=== PATIENT | male | born 1935 | race Caucasian/White ===

== ENCOUNTER → 2017-11-01 | Outpatient (CLI) | payer OTHER, MEDICARE | END | disposition home or self-care (01) | LOC: C.LAB 12:13 | PROVIDERS: ATTEND Urology | DX: N40.1 Benign prostatic hyperplasia with lower urinary tract symptoms (principal); R97.20 Elevated prostate specific antigen [PSA] ==

== ENCOUNTER 2022-01-30 11:45 | Inpatient (IN) ==
[2022-01-30] MEDS ORDERED: MoRPHine SULFATE 2 MG/ML CARP IV STA (11:57)
--- NOTE | 2022-01-30 12:12 | Emergency Department Note ---
History of Present Illness General Chief complaint: Shortness of Breath/Dyspnea Stated complaint: FALL, SOB, LT SHOULDER PAIN Time Seen by Provider: 01/30/22 11:52 History of Present Illness Maximum Pain Intensity: 8 86-year-old male presents to the ED with a chief complaint of Darier thorax pain after slipping on the driveway and landing on that area just prior to arrival. His pain is worse with movement and breathing. The patient has no additional complaints at this time. Denies striking his head. Denies any extremity pain, abdominal pains, neck pains or midline back pains. Home Medications Medication Instructions Recorded Confirmed Type calcium carbonate 600 mg calcium 600 mg PO DAILY 11/10/19 07/12/21 History (1,500 mg) tablet (Calcium) cyanocobalamin (vitamin B-12) 1,000 mcg PO DAILY 11/10/19 07/12/21 History 1,000 mcg capsule omeprazole 20 mg capsule,delayed 20 mg PO DAILY 11/10/19 07/12/21 History release acetaminophen 325 mg tablet 325 mg PO QID PRN 06/09/21 07/12/21 History (Tylenol) finasteride 5 mg tablet 5 mg PO DAILY #90 tab 09/18/21 Rx Allergies Allergy/AdvReac Type Severity Reaction Status Date / Time No Known Allergies Allergy Unknown Verified 07/12/21 09:55 Past Med/Surg History Medical History Benign polyp of large intestine BPH (benign prostatic hyperplasia) Esophageal reflux External hemorrhoid Surgical History H/O transurethral resection of prostate History of appendectomy History of cholecystectomy History of herniorrhaphy Family History Father Myocardial infarction Brother Allergic rhinitis Mother Allergic rhinitis Congestive heart disease Social History Smoking Status: Never smoker Tobacco Type: Cigarettes Hx Alcohol Use: No marital status: current occupational status: retired Feels Safe at Home: Yes Review of Systems A total of 10 systems reviewed and were otherwise negative Physical Exam Vital Signs Vital Signs - 24 hr 01/30/22 11:47 01/30/22 12:43 01/30/22 13:41 Temperature 37 C Temperature Source Temporal Artery Scan Pulse Rate 72 Respiratory Rate 20 Blood Pressure 163/133 H Blood Pressure Mean 143 Blood Pressure Position Sitting Pulse Oximetry 98 97 99 Oxygen Delivery Method Room Air Room Air Room Air Nasal Cannula Oxygen Flow Rate 0 Sepsis Recent Fever Within 48 Hours No Sepsis New/Unexplained Change in Mental Status No Sepsis Action Taken by Nursing No Action Required Oxygen Flow Rate - Titration 6 Pulse Oximetry Post Tiitration 100 CONSTITUTIONAL/VITAL SIGNS: Reviewed / noted above. GENERAL: Non-toxic in appearance. INTEGUMENTARY: Warm, dry, and [place]. HEAD: Normocephalic. EYES: without scleral icterus or trauma. ENT/OROPHARYNX: clear and moist. LYMPHADENOPATHY/NECK: Is supple without lymphadenopathy or meningismus. RESPIRATORY: Clear to auscultation bilaterally. No increased work of breathing. CARDIOVASCULAR: Regular rate and rhythm. GI/ABDOMEN: Soft and nontender. No organomegaly or pulsatile mass. EXTREMITIES: Warm and well perfused. BACK: No CVA tenderness. There is tenderness to palpation of the left posterior ribs that are just medial to the scapula. Small amount of crepitus felt there as well. NEUROLOGICAL: Intact without focal deficits. PSYCHIATRIC: normal affect. MUSCULOSKELETAL: Normally developed with good muscle tone. TRIAGE NURSING DOCUMENTATION REVIEWED. Course Administered Medications Discontinued Medications Morphine Sulfate (Morphine Sulfate 2 Mg/Ml Carp) 2 mg IV NOW STA Stop: 01/30/22 11:58 Last Admin: 01/30/22 12:08 Dose: 2 mg Documented by: [id number] Medical Decision Making Differential Diagnosis Differential includes close head injury, intracranial bleed, facial trauma, cervical spine trauma, chest and thoracic trauma, abdominal and intra-abdominal trauma, spine neurologic trauma, extremity trauma. Medical Records Attestation: I reviewed the patient's medical records. Home Medications Current Medication List: was personally reviewed by me Laboratory Data Result diagrams: 01/30/22 13:00 01/30/22 13:00 Lab Results 01/30/22 01/30/22 01/30/22 Range/Units 13:00 13:00 13:00 WBC 10.19 (4.8-10.8) K/uL RBC 4.12 L (4.7-6.1) M/uL Hgb 12.6 L (14.0-18.0) g/dL Hct 37.7 L (42-52) % MCV 91.5 (80-100) fL MCH 30.6 (25-34) pg MCHC 33.4 (32-36) g/dL RDW Std Deviation 44.5 (36.4-46.3) fL RDW Coeff of Aysha 13.4 (11.5-14.5) % Plt Count 172 (130-400) K/uL MPV 9.7 (7.4-10.4) fL Immature Gran % (Auto) 0.4 % Neut % (Auto) 83.5 % Lymph % (Auto) 8.5 % [place] % (Auto) 6.5 % Eos % (Auto) 0.8 % Baso % (Auto) 0.3 % Neut # (Auto) 8.51 H (1.4-6.5) K/uL Lymph # (Auto) 0.87 L (1.2-3.4) K/uL [place] # (Auto) 0.66 H (0.11-0.59) K/uL Eos # (Auto) 0.08 (0-0.5) K/uL Baso # (Auto) 0.03 (0-0.2) K/uL Immature Gran # (Auto) 0.04 H (0.00-0.02) K/uL PT 10.9 (9.0-12.0) Seconds INR 1.0 (0.9-1.1) Sodium 140 (136-145) mmol/L Potassium 3.6 (3.5-5.1) mmol/L Chloride 113 H (98-107) mmol/L Carbon Dioxide 24 (21-32) mmol/L Anion Gap 3 (3-11) BUN 13 (6-23) mg/dl Creatinine 0.80 (0.6-1.4) mg/dl Est Cr Clr Drug Dosing Not Reportable Est GFR ( Amer) 93.8 ml/min Est GFR (Non-Af Amer) 80.9 ml/min BUN/Creatinine Ratio 16.3 (10-20) Glucose 90 (70-99(Fasting)) mg/dl Calcium 7.6 L (8.5-10.1) mg/dl Imaging Data Radiologist's Impression: Ribs w/Chest X-Ray 01/30/22 11:57 XR ribs LT min 2V w CXR1V HISTORY: 86 years-old Male left rib pain, fall . Left-sided rib pain status post fall COMPARISON: Chest CT of same day, chest radiographs 10/08/2011 TECHNIQUE: AP view of the chest with 7 views of the left ribs FINDINGS: Cardiac silhouette is enlarged. Left apical pneumothorax demonstrates 2.4 cm of pleural separation. Mild subcutaneous emphysema of the left chest wall. Acute fractures of the posterior left fourth through 10th ribs with mild displacement of the fourth through sixth rib fractures. Trace left pleural effusion with mild bibasilar opacities. IMPRESSION: 1. Small left hemopneumothorax with several acute left-sided rib fractures, better visualized on the comparison chest CT of same day. 2. Mild bibasilar opacities suggest atelectasis. ACT 112: Negative or not required by law. The above report was generated using voice recognition software. It may contain grammatical, syntax or spelling errors. Electronically signed by: Luciano Mar M.D. 01/30/2022 1:[address] 01/30/22 12:58 CT chest diagnostic wo con CLINICAL HISTORY: rib fx, left pneumothorax TECHNIQUE: Multidetector row helical CT of the chest was performed. Coronal and sagittal reformations were obtained. Automated dose lowering techniques and/or adjustment according to patient size were utilized for this exam. Comparison: None available at the time of this dictation. FINDINGS: Lungs and pleura: There is a small right effusion and right pneumothorax. Associated atelectasis is seen. Heart and pericardium: Cardiomegaly is seen with biatrial enlargement. Vessels: Moderate atherosclerotic changes in the aorta and coronary arteries. Mediastinum and christina: Unremarkable. Chest wall and lower neck: Subcutaneous emphysema is seen. Abdomen: Splenic calcifications are seen which may represent prior granulomatous disease. A hepatic cyst is partially visualized. Bones: Degenerative changes in the thoracic spine. Multiple fractured ribs are seen on the right including the posterior fourth, fifth, sixth, seventh, eighth, ninth, and 10th ribs. IMPRESSION: Multiple left rib fractures with underlying hydropneumothorax. ACT 112: Negative or not required by law. Electronically signed by: Jorge Luis Isidro M.D. 01/30/2022 1:30 PM MDM Narrative 86-year-old male presents with left posterior thorax pain after a slip and fall in the snow in the driveway just prior to arrival. Vital signs reveal hypertension. He does have tenderness on exam in that area. Chest x-ray and CT scan showed multiple rib fractures and a small pneumothorax. The patient was given IV morphine for discomfort. This seemed to improve symptoms. The patient had good oxygen saturations on room air. He was started on 6 L nasal cannula oxygen. I do believe the patient may improve with conservative management including oxygen and pain medication. At this time I do not feel the patient requires a chest tube. I did speak with Dr. Gonzalez from pulmonology. The patient be admitted to medicine with serial x-rays. Patient is in agreement with the plan. Impression & Plan Fall, Fracture of multiple ribs of left side, Traumatic fracture of ribs of left side with pneumothorax Discharge Plan Visit Data Chief Complaint: Shortness of Breath/Dyspnea Stated Complaint: FALL, SOB, LT SHOULDER PAIN ED Provider: Stiven Walters Discharge Problem: Fall, Fracture of multiple ribs of left side, Traumatic fracture of ribs of left side with pneumothorax Patient Disposition: Being Evaluated by Hospitalist Forms Stand Alone Forms: My [facility] Prescriptions Prescriptions: No Action finasteride 5 mg tablet 5 mg PO DAILY Qty: 90 RF: 3 cyanocobalamin (vitamin B-12) 1,000 mcg capsule 1,000 mcg PO DAILY RF: 0 omeprazole 20 mg capsule,delayed release(DR/EC) 20 mg PO DAILY RF: 0 calcium carbonate [Calcium 600] 600 mg calcium (1,500 mg) tablet 600 mg PO DAILY RF: 0 acetaminophen [Tylenol] 325 mg Tablet 325 mg PO QID PRN (Reason: Pain) RF: 0 Referrals Referrals: Cash Mejia [Primary Care Provider] -
[2022-01-30 13:16] LABS: Basophils # (auto) 0.03 K/uL (0-0.2); Basophils % (auto) 0.3 %; Eosinophils # (auto) 0.08 K/uL (0-0.5); Eosinophils % (auto) 0.8 %; Hematocrit (blood only) 37.7 % (42-52); Hemoglobin 12.6 g/dL (14.0-18.0); Immature Granulocytes # (auto) 0.04 K/uL (0.00-0.02); Immature Granulocytes % (auto) 0.4 %; Lymphocytes # (auto) 0.87 K/uL (1.2-3.4); Lymphocytes % (auto) 8.5 %; Mean Corpuscular Hemoglobin 30.6 pg (25-34); Mean Corpuscular Hgb Conc 33.4 g/dL (32-36); Mean Corpuscular Volume 91.5 fL (80-100); Mean Platelet Volume 9.7 fL (7.4-10.4); Monocytes # (auto) 0.66 K/uL (0.11-0.59); Monocytes % (auto) 6.5 %; Neutrophils # (auto) 8.51 K/uL (1.4-6.5); Neutrophils % (auto) 83.5 %; Platelet Count 172 K/uL (130-400); RDW Coefficient of Variation 13.4 % (11.5-14.5); RDW Standard Deviation 44.5 fL (36.4-46.3); Red Blood Count 4.12 M/uL (4.7-6.1); White Blood Count 10.19 K/uL (4.8-10.8)
--- NOTE | 2022-01-30 13:22 | XRay Report ---
XR ribs LT min 2V w CXR1V HISTORY: 86 years-old Male left rib pain, fall . Left-sided rib pain status post fall COMPARISON: Chest CT of same day, chest radiographs 10/08/2011 TECHNIQUE: AP view of the chest with 7 views of the left ribs FINDINGS: Cardiac silhouette is enlarged. Left apical pneumothorax demonstrates 2.4 cm of pleural separation. M ild subcutaneous emphysema of the left chest wall. Acute fractures of the posterior left fourth throu gh 10th ribs with mild displacement of the fourth through sixth rib fractures. Trace left pleural eff usion with mild bibasilar opacities. IMPRESSION: 1. Small left hemopneumothorax with several acute left-sided rib fractures, better visualized on the comparison chest CT of same day. 2. Mild bibasilar opacities suggest atelectasis. ACT 112: Negative or not required by law. The above report was generated using voice recognition software. It may contain grammatical, syntax o r spelling errors. Electronically signed by: Luciano Mar M.D. 01/30/2022 1:20 PM
--- NOTE | 2022-01-30 13:31 | CT Scan Report ---
CT chest diagnostic wo con CLINICAL HISTORY: rib fx, left pneumothorax TECHNIQUE: Multidetector row helical CT of the chest was performed. Coronal and sagittal reformations were obtained. Automated dose lowering techniques and/or adjustment according to patient size were u tilized for this exam. Comparison: None available at the time of this dictation. FINDINGS: Lungs and pleura: There is a small right effusion and right pneumothorax. Associated atelectasis is s een. Heart and pericardium: Cardiomegaly is seen with biatrial enlargement. Vessels: Moderate atherosclerotic changes in the aorta and coronary arteries. Mediastinum and christina: Unremarkable. Chest wall and lower neck: Subcutaneous emphysema is seen. Abdomen: Splenic calcifications are seen which may represent prior granulomatous disease. A hepatic c yst is partially visualized. Bones: Degenerative changes in the thoracic spine. Multiple fractured ribs are seen on the right incl uding the posterior fourth, fifth, sixth, seventh, eighth, ninth, and 10th ribs. IMPRESSION: Multiple left rib fractures with underlying hydropneumothorax. ACT 112: Negative or not required by law. Electronically signed by: Jorge Luis Isidro M.D. 01/30/2022 1:30 PM
[2022-01-30 13:32] LABS: Prothrombin Time 10.9 Seconds (9.0-12.0)
[2022-01-30 13:38] LABS: Anion Gap 3 (3-11); BUN Creatinine Ratio 16.3 (10-20); Blood Urea Nitrogen 13 mg/dl (6-23); Calcium 7.6 mg/dl (8.5-10.1); Carbon Dioxide 24 mmol/L (21-32); Chloride 113 mmol/L (98-107); Est GFR (African American) 93.8 ml/min; Est GFR (Non-African American) 80.9 ml/min; Glucose 90 mg/dl (70-99(Fasting)); Potassium 3.6 mmol/L (3.5-5.1); Sodium 140 mmol/L (136-145)
[2022-01-30] MEDS ORDERED: KETOROLAC TROMETHAMINE 15 MG/ML VIAL IV ONE (14:22)
--- NOTE | 2022-01-30 14:28 | Pulmonary Consultation ---
Date of Consultation January 30, 2022 Assessment & Plan (1) Traumatic fracture of ribs of left side with pneumothorax: (2) Fall: Impression: 86-year-old male with a traumatic pneumothorax with 7 posterior right-sided rib fractures. Recommendation: 1. Traumatic pneumothorax: Pneumothorax is taken off to justify tube thoracostomy currently but the patient is doing well clinically and has been monitored in the ER for almost 3-1/2 hours without any clinical deterioration. Discussed with the admitting hospitalist service. We will plan on short interval follow-up scanning and if the pneumothorax demonstrates any progression, proceed with tube thoracostomy. 2. Additional trauma work-up per the admitting service. 3. Pain control will be required for prevention of secondary complications such as respiratory insufficiency and pneumonia. Would have a low threshold for anesthesia consultation and consideration for intercostal nerve blocks or other local regional pain management techniques. We will try to avoid over sedating the patient with systemic medications if at all possible. 4. Continue oxygen currently. 5. The patient will require serial imaging. He is at risk for secondary complications associated with a fall and trauma. Management of his other medical issues is deferred to the primary admitting service. Discussed at bedside with the admitting nurse practitioner from the hospitalist service as well as with the patient and family at bedside. Questions were a nswered to the best my ability. We will continue to follow with you History of Present Illness History of Present Illness Asked by hospitalist to assist in evaluation management patient with multiple rib fractures and traumatic pneumothorax. History is obtained from discussion with the ER staff, discussion with the admitting hospitalist service, and interview the patient at bedside as well as review the electronic medical record. The patient is an 86-year-old male without significant prior pulmonary history who was outside shoveling snow today. He suffered a fall onto his back after slipping on the snow and ice. He had chest pain. He presented to the emergency room and was studied with a chest x-ray which revealed multiple rib fractures. A CT scan was also performed showing a traumatic pneumothorax and acute right- sided rib fractures posteriorly 4, 5, 6, 7, 8, 9, and 10th ribs. He is not had primary secondary trauma survey conducted. The patient complains of pain. He received morphine which did take the edge off but he still unable to take a deep breath and unable to cough due to pain issues. Allergies Allergy/AdvReac Type Severity Reaction Status Date / Time No Known Allergies Allergy Unknown Verified 07/12/21 09:55 Home Medications Medication Instructions Recorded Confirmed Type calcium carbonate 600 mg calcium 600 mg PO DAILY 11/10/19 07/12/21 History (1,500 mg) tablet (Calcium) cyanocobalamin (vitamin B-12) 1,000 mcg PO DAILY 11/10/19 07/12/21 History 1,000 mcg capsule omeprazole 20 mg capsule,delayed 20 mg PO DAILY 11/10/19 07/12/21 History release acetaminophen 325 mg tablet 325 mg PO QID PRN 06/09/21 07/12/21 History (Tylenol) finasteride 5 mg tablet 5 mg PO DAILY #90 tab 09/18/21 Rx Patient History Medical History Benign polyp of large intestine BPH (benign prostatic hyperplasia) Esophageal reflux External hemorrhoid Surgical History H/O transurethral resection of prostate History of appendectomy History of cholecystectomy History of herniorrhaphy Family History Father Myocardial infarction Brother Allergic rhinitis Mother Allergic rhinitis Congestive heart disease Social History Smoking Status: Never smoker Tobacco Type: Cigarettes Hx Alcohol Use: No marital status: current occupational status: retired Feels Safe at Home: Yes Review of Systems Review of Systems: Please refer to admission H&P. No additions or deletions Physical Exam Constitutional: WD/WN, vitals as above Neck: trachea midline, no thyromegaly Respiratory: normal respiratory effort, lungs clear to auscultation Cardiovascular: RRR, no murmur, no edema Chest (Breasts): Additional Comments: Tender to palpation on the right posterior thorax. Inability to take a deep breath. Gastrointestinal (Abdomen): normal bowel sounds, soft, nontender, no hepatosplenomegaly Musculoskeletal: Extremities: extremities normal to inspection Skin: no rashes, warm and dry Neurologic: Nonfocal exam Lymphatic: no cervical lymphadenopathy Results & Data Results & Data ([facility]) Vital Signs (Past 12 Hours) Vital Signs Temp Pulse Pulse Resp BP BP Pulse Ox 01/30/22 13:45 71 18 177/80 H 100 01/30/22 13:41 99 01/30/22 12:43 97 01/30/22 11:47 37 C 72 20 163/133 H 98 Critical Care Results & Data Vital Signs (Past 12 Hours) Vital Signs Temp Pulse Pulse Resp BP BP Pulse Ox 01/30/22 13:45 71 18 177/80 H 100 01/30/22 13:41 99 01/30/22 12:43 97 01/30/22 11:47 37 C 72 20 163/133 H 98 Lab & Micro Results (Past 24 Hours) RBC 4.12 M/uL (4.7-6.1) L 01/30/22 WBC 10.19 K/uL (4.8-10.8) 01/30/22 Hgb 12.6 g/dL (14.0-18.0) L 01/30/22 Hct 37.7 % (42-52) L 01/30/22 MCV 91.5 fL (80-100) 01/30/22 MCH 30.6 pg (25-34) 01/30/22 MCHC 33.4 g/dL (32-36) 01/30/22 RDW Standard Deviation 44.5 fL (36.4-46.3) 01/30/22 RDW Coefficient of Variation 13.4 % (11.5-14.5) 01/30/22 Plt Count 172 K/uL (130-400) 01/30/22 MPV 9.7 fL (7.4-10.4) 01/30/22 Neutrophils (%) (Auto) 83.5 % 01/30/22 Lymphocytes (%) (Auto) 8.5 % 01/30/22 Monocytes # (Auto) 0.66 K/uL (0.11-0.59) H 01/30/22 Eosinophils # (Auto) 0.08 K/uL (0-0.5) 01/30/22 Immature Granulocyte % (Auto) 0.4 % 01/30/22 Neutrophils # (Auto) 8.51 K/uL (1.4-6.5) H 01/30/22 Lymphocytes # (Auto) 0.87 K/uL (1.2-3.4) L 01/30/22 Monocytes # (Auto) 0.66 K/uL (0.11-0.59) H 01/30/22 Eosinophils # (Auto) 0.08 K/uL (0-0.5) 01/30/22 Basophils # (Auto) 0.03 K/uL (0-0.2) 01/30/22 Immature Granulocyte # (Auto) 0.04 K/uL (0.00-0.02) H 01/30/22 Na 140 mmol/L (136-145) 01/30/22 K 3.6 mmol/L (3.5-5.1) 01/30/22 Cl 113 mmol/L (98-107) H 01/30/22 CO2 24 mmol/L (21-32) 01/30/22 Anion Gap 3 (3-11) 01/30/22 BUN 13 mg/dl (6-23) 01/30/22 Creatinine 0.80 mg/dl (0.6-1.4) 01/30/22 Estimated GFR ( Amer) 93.8 ml/min 01/30/22 Estimated GFR (Non-Af Amer) 80.9 ml/min 01/30/22 BUN/Creatinine Ratio 16.3 (10-20) 01/30/22 Glu 90 mg/dl (70-99(Fasting)) 01/30/22 Ca 7.6 mg/dl (8.5-10.1) L 01/30/22 Calcium Level 7.6 mg/dl (8.5-10.1) L 01/30/22 13:00 01/30/22 Prothromb Time International Ratio 1.0 (0.9-1.1) 01/30/22 13:00 01/30/22 Diagnostic Findings (Past 24 Hours) Ribs w/Chest X-Ray 01/30/22 11:57 XR ribs LT min 2V w CXR1V HISTORY: 86 years-old Male left rib pain, fall . Left-sided rib pain status post fall COMPARISON: Chest CT of same day, chest radiographs 10/08/2011 TECHNIQUE: AP view of the chest with 7 views of the left ribs FINDINGS: Cardiac silhouette is enlarged. Left apical pneumothorax demonstrates 2.4 cm of pleural separation. Mild subcutaneous emphysema of the left chest wall. Acute fractures of the posterior left fourth through 10th ribs with mild displacement of the fourth through sixth rib fractures. Trace left pleural effusion with mild bibasilar opacities. IMPRESSION: 1. Small left hemopneumothorax with several acute left-sided rib fractures, better visualized on the comparison chest CT of same day. 2. Mild bibasilar opacities suggest atelectasis. ACT 112: Negative or not required by law. The above report was generated using voice recognition software. It may contain grammatical, syntax or spelling errors. Electronically signed by: Luciano Mar M.D. 01/30/2022 1:[address] 01/30/22 12:58 CT chest diagnostic wo con CLINICAL HISTORY: rib fx, left pneumothorax TECHNIQUE: Multidetector row helical CT of the chest was performed. Coronal and sagittal reformations were obtained. Automated dose lowering techniques and/or adjustment according to patient size were utilized for this exam. Comparison: None available at the time of this dictation. FINDINGS: Lungs and pleura: There is a small right effusion and right pneumothorax. Associated atelectasis is seen. Heart and pericardium: Cardiomegaly is seen with biatrial enlargement. Vessels: Moderate atherosclerotic changes in the aorta and coronary arteries. Mediastinum and christina: Unremarkable. Chest wall and lower neck: Subcutaneous emphysema is seen. Abdomen: Splenic calcifications are seen which may represent prior granulomatous disease. A hepatic cyst is partially visualized. Bones: Degenerative changes in the thoracic spine. Multiple fractured ribs are seen on the right including the posterior fourth, fifth, sixth, seventh, eighth, ninth, and 10th ribs. IMPRESSION: Multiple left rib fractures with underlying hydropneumothorax. ACT 112: Negative or not required by law. Electronically signed by: Jorge Luis Isidro M.D. 01/30/2022 1:30 PM RT Ventilator Mngmt (Last Documented) Ventilator Ordered Settings Respiratory Rate 18 01/30/22 13:45 Ventilator - PT Measurements Respiratory Rate 18 PG Care Time/CCT Total # of Minutes Spent Total Time Spent with Patient: Total time spent is greater than 50% in coordination of care (as documented) at patient's floor/unit and/or counseling patient: Coding Level of Care Code 20203 Initial Inpt Care Lvl 3 Diagnoses Traumatic fracture of ribs of left side with pneumothorax S22.42XA; S27.0XXA Fall W19.XXXA
[2022-01-30] MEDS: LIDOCAINE 5% 1 PATCH TD SCH (14:32)
--- NOTE | 2022-01-30 14:59 | History & Physical Report ---
Date of Service January 30, 2022 Assessment & Plan (1) Fall: Plan: Fall from standing directly on left back- resulting in rib fracture and pneumothorax - Awake alert, briskly responsive, breathing with adequate ventilation and oxygenation - CT scan of thoracic and lumbar spine- point tenderness midline with palpation - no actue subluxation, fracture, compression noted - No further evidence of other MSK injuries with palpation and ROM (2) Traumatic fracture of ribs of left side with pneumothorax: Plan: At least 6 rib fractures on left side with pain at false ribs as well - associated with pneumothorax- on left side ~2.4mm with atelectasis vs. evolving contusion - Pain control to prevent sequelae of pneumonia or further atelectasis - Tylenol scheduled 650 mg - Toradol 15mg IV q6 prn mild to moderate - Oxy IR 5mg PO moderate to severe pain - Morphine 2 mg IV q6 prn severe pain - Lidoderm patch left back/flank - APS consult- appreciate evaluation for possible intervention - Follow pneumothorax with assessment and serial imaging - repeat CXR tonight at 2100 - if increases or symptoms change would place pigtail catheter vs. small bore thoracostomy- appreciate pulmonary assistance - +/- on oxygen supplementation to assist with re-absorption - he does not have COPD so continue - No hemothorax appreciated - Trachea midline (3) Prostate nodule with urinary obstruction: Plan: Follows with urology Continue with Finasteride (4) Esophageal reflux: Plan: Continue omeprazole 20mg daily (5) Winged scapula of left side: Plan: Follows with Dr. Edwards noting some thoracic nerve pain with this as well as muscle tightening - Pain control with rib fractures and may benefit from PT/OT as this muscle group likely to tighten up from above (6) BPH with obstruction/lower urinary tract symptoms: Plan: As above History of Present Illness Primary Care Provider: Cash Mejia 86 YOM with past medical history of: BPH with prostate nodule, Zenker, diverticulum, osteopenia, GERD. Patient comes to the EMD today following falling on [place] top driveway. Patient states he went out to shovel snow and slipped in his driveway landing directly on his upper thoracic back and more on left side. The patient immediately had the wind knocked out of him and was unable to take deep breath- he got up into the garage and continued to not be able to catch his breath. He was brought by his daughter to the [facility]. In the [facility] he had routine labs drawn, CXR, and CT scan of his chest performed. This was notable for left sided pneumothorax with effusion and reported 6 rib fractures to the left side. Hospitalist and County Treasurer were notified of admission. Patient evaluated. Patient denies hitting head or having any neck pain with palpation, he is noted to have point tenderness on his thoracic spine and upper lumbar, will obtain CT cans. He has SubQ air on the left side as well. Has good air entry on right throughout and into the left side except at the top of his lung as this is decreased. No further pain noted in his pelvis, knees, or shoulders/arms. He is awake and no bruising noted. Patient will be admitted to PCU to closely follow his pain control as well as imaging. We dis cussed importance of pain control in regards to deep breathing and preventing sequela of pneumonia/atelectasis. Will provide multiple tiered pain control, splinting with blanket, and APS consult for possible assistance with pain control. Allergies Allergy/AdvReac Type Severity Reaction Status Date / Time No Known Allergies Allergy Unknown Verified 07/12/21 09:55 Home Medications Medication Instructions Recorded Confirmed Type calcium carbonate 600 mg calcium 600 mg PO DAILY 11/10/19 01/30/22 History (1,500 mg) tablet (Calcium) cyanocobalamin (vitamin B-12) 1,000 mcg PO DAILY 11/10/19 01/30/22 History 1,000 mcg capsule omeprazole 20 mg capsule,delayed 20 mg PO DAILY 11/10/19 01/30/22 History release acetaminophen 325 mg tablet 325 mg PO QID PRN 06/09/21 01/30/22 History (Tylenol) finasteride 5 mg tablet 5 mg PO DAILY #90 tab 09/18/21 01/30/22 Rx Past Med/Surg History Medical History (Updated 01/30/22 @ 14:55 by JAM Smith) Benign polyp of large intestine BPH (benign prostatic hyperplasia) Esophageal reflux External hemorrhoid Surgical History H/O transurethral resection of prostate History of appendectomy History of cholecystectomy History of herniorrhaphy Family History Father Myocardial infarction Brother Allergic rhinitis Mother Allergic rhinitis Congestive heart disease Social History Smoking Status: Never smoker Tobacco Type: Cigarettes Hx Alcohol Use: No Hx Substance Use: No Preferred Language: Bengali Communication Ability: Effective 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 Required: No Beliefs That Will Affect Care: None marital status: Current Living Situation: Alone and Family current occupational status: retired Feels Safe at Home: Yes Assistive Devices: Denture - Upper and Denture - Lower Review of Systems Review of Systems: REVIEW OF SYSTEMS: Constitutional: No fever, sweats or chills Eyes: No diplopia, no worsening or blurred vision ENT: normal hearing, no trouble swallowing Respiratory: No cough, sputum, dyspnea at rest or on exertion Cardiovascular: No chest pain, tightness or palpitations Abdomen: (+) night time frequency, No pain, nausea, vomiting, diarrhea or constipation Musculoskeletal: (+) back and left sided flank pain Neurologic: No weakness, numbness/tingling, or balance problems Psychiatric: No anxiety or depression Skin: No rash or itch Physical Exam Physical Exam: PHYSICAL EXAM: General: awake, alert, no apparent distress Head: Normocephalic, atraumatic, no tender areas with palpation and no crepitus ENT: PERRL, EOMI, no pharyngeal exudate, mucous membranes moist Neuro: AAO x 3, speech clear and appropriate, strength intact bilaterally 5/5, sensation intact and equal all extremities and dermatones, no pronator drift Chest: equal rise and fall of the chest, no accessory muscle use, no heaves or thrills, decreased left upper <1/3 and clear throughout remaining, no assymetry or flail chest Cardiac: Regular rate and rhythm, telemetry reviewed, skin warm dry, cap refill <3 seconds, peripheral pulses +2 no JVD, no murmur,no edema GI: NABS x 4 quadrants, soft, nontender to palpation, no rebound, guarding or tenderness : Spontaneously voiding, no pain, no CVA tenderness, MSK: No cervical spine tenderness and no pain with flexion/extension, Midline point tenderness around T6-T7 and L1, left posterior and left flank pain with subcutaneous emphysema, shoulders with full ROM bilaterally without crepitus, pelvis stable without pain, no pain to legs or knees or hips and full ROM with intact strength and sensation throughout. Psych: Normal mood and affect Skin: no rash or erythema Results & Data Results & Data ([facility]) Vital Signs (Past 12 Hours) Vital Signs Temp Pulse Pulse Resp BP BP Pulse Ox 01/30/22 13:45 71 18 177/80 H 100 01/30/22 13:41 99 01/30/22 12:43 97 01/30/22 11:47 37 C 72 20 163/133 H 98 Laboratory Results Abnormal lab results 01/30/22 01/30/22 Range/Units 13:00 13:00 RBC 4.12 L (4.7-6.1) M/uL Hgb 12.6 L (14.0-18.0) g/dL Hct 37.7 L (42-52) % Neut # (Auto) 8.51 H (1.4-6.5) K/uL Lymph # (Auto) 0.87 L (1.2-3.4) K/uL Johnston # (Auto) 0.66 H (0.11-0.59) K/uL Immature Gran # (Auto) 0.04 H (0.00-0.02) K/uL Chloride 113 H (98-107) mmol/L Calcium 7.6 L (8.5-10.1) mg/dl Diagnostic Findings Ribs w/Chest X-Ray 01/30/22 11:57 XR ribs LT min 2V w CXR1V HISTORY: 86 years-old Male left rib pain, fall . Left-sided rib pain status post fall COMPARISON: Chest CT of same day, chest radiographs 10/08/2011 TECHNIQUE: AP view of the chest with 7 views of the left ribs FINDINGS: Cardiac silhouette is enlarged. Left apical pneumothorax demonstrates 2.4 cm of pleural separation. Mild subcutaneous emphysema of the left chest wall. Acute fractures of the posterior left fourth through 10th ribs with mild displacement of the fourth through sixth rib fractures. Trace left pleural effusion with mild bibasilar opacities. IMPRESSION: 1. Small left hemopneumothorax with several acute left-sided rib fractures, better visualized on the comparison chest CT of same day. 2. Mild bibasilar opacities suggest atelectasis. ACT 112: Negative or not required by law. The above report was generated using voice recognition software. It may contain grammatical, syntax or spelling errors. Electronically signed by: Luciano Mar M.D. 01/30/2022 1:[address] 01/30/22 12:58 CT chest diagnostic wo con CLINICAL HISTORY: rib fx, left pneumothorax TECHNIQUE: Multidetector row helical CT of the chest was performed. Coronal and sagittal reformations were obtained. Automated dose lowering techniques and/or adjustment according to patient size were utilized for this exam. Comparison: None available at the time of this dictation. FINDINGS: Lungs and pleura: There is a small right effusion and right pneumothorax. Associated atelectasis is seen. Heart and pericardium: Cardiomegaly is seen with biatrial enlargement. Vessels: Moderate atherosclerotic changes in the aorta and coronary arteries. Mediastinum and christina: Unremarkable. Chest wall and lower neck: Subcutaneous emphysema is seen. Abdomen: Splenic calcifications are seen which may represent prior granulomatous disease. A hepatic cyst is partially visualized. Bones: Degenerative changes in the thoracic spine. Multiple fractured ribs are seen on the right including the posterior fourth, fifth, sixth, seventh, eighth, ninth, and 10th ribs. IMPRESSION: Multiple left rib fractures with underlying hydropneumothorax. ACT 112: Negative or not required by law. Electronically signed by: Jorge Luis Isidro M.D. 01/30/2022 1:[address] DOSE: HISTORY: Left-sided back pain. point tenderness with fall- eval for fracture TECHNIQUE: Multiaxial CT images of the lumbar spine were performed and reformatted in the sagittal and coronal plane without the use of contrast. A dose lowering technique was utilized adhering to the principles of ALARA. COMPARISON: Chest CT 01/30/2022. FINDINGS: No fracture or subluxation within the lumbar spine. The visualized sacrum is intact. Paravertebral soft tissues are unremarkable. There is severe disc space narrowing at L3-L4 and L4-5 with endplate osteophytes. There is also moderate central canal narrowing at these levels due to the disc bulges and facet hypertrophy. Small amount of subcutaneous gas within the left paraspinal location. This is likely secondary to the left chest wall trauma seen on the prior chest CT. IMPRESSION: No fractures within the lumbar spine. CT thoracic spine wo con CLINICAL HISTORY: evaluate for fracture- point tenderness post fall TECHNIQUE: Multidetector row helical CT of the thoracic spine was performed without administration of intravenous contrast. Coronal and sagittal reformations were obtained. Automated dose lowering techniques and/or adjustment according to patient size were utilized for this exam. Comparison: Comparison is made to CT chest 01/30/2022 FINDINGS: Multiple left rib fractures are seen. No vertebral fracture is seen. Degenerative changes are noted in the visualized spine. Vertebral body alignment is within normal limits. Again noted is a left hydropneumothorax and subcutaneous emphysema. IMPRESSION: Multiple left rib fractures seen without evidence of vertebral fractures. ACT 112: Negative or not required by law. Electronically signed by: Jorge Luis Isidro M.D. 01/30/2022 2:59 PM Medications Administered Lidocaine (Lidocaine 5% 1 Patch) 1 patch TD QAM [facility] Stop: 03/01/22 14:23 Last Admin: 01/30/22 14:32 Dose: 1 patch Documented by: [id number] Discontinued Medications Ketorolac Tromethamine (Ketorolac Tromethamine 15 Mg/Ml Vial) 15 mg IV NOW ONE Stop: 01/30/22 14:23 Last Admin: 01/30/22 14:29 Dose: 15 mg Documented by: [id number] Morphine Sulfate (Morphine Sulfate 2 Mg/Ml Carp) 2 mg IV NOW STA Stop: 01/30/22 11:58 Last Admin: 01/30/22 12:08 Dose: 2 mg Documented by: [id number] Home Medications calcium carbonate 600 mg calcium (1,500 mg) tablet (Calcium) 600 mg PO DAILY 11/10/19 [History Confirmed 07/12/21] cyanocobalamin (vitamin B-12) 1,000 mcg capsule 1,000 mcg PO DAILY 11/10/19 [History Confirmed 07/12/21] omeprazole 20 mg capsule,delayed release 20 mg PO DAILY 11/10/19 [History Confirmed 07/12/21] acetaminophen 325 mg tablet (Tylenol) 325 mg PO QID PRN 06/09/21 [History Confirmed 07/12/21] finasteride 5 mg tablet 5 mg PO DAILY #90 tab 09/18/21 [Rx] Active Medications Lidocaine (Lidocaine 5% 1 Patch) 1 patch TD QAM MICHELINE Stop: 03/01/22 14:23 Last Admin: 01/30/22 14:32 Dose: 1 patch Documented by: ECG Additional Comments: Pending on admission Code Status & VTE Plan Code Status CODE: FULL VTE: SCDS, will hold chemical prophylaxis until scans and repeat imaging completed VTE Prophylaxis Plan VTE Prophylaxis will be ordered: Yes Supervising Physician Co-Signing Physician Notes I supervised JAM Schneider on the care of this patient. I interviewed and examined the patient independently of him. The plan is as written in his note except for any following changes/exceptions: None 86yo M w/ mechanical fall, presenting with 6 rib fractures. Now also with PTX. Will get pulmonary to weigh in, monitor PTX, treat pain control. PG Care Time/CCT Total # of Minutes Spent Total Time Spent with Patient: Total time spent is greater than 50% in coordination of care (as documented) at patient's floor/unit and/or counseling patient: Coding Level of Care Code 39056 Initial Inpt Care Lvl 3 Diagnoses Fall W19.XXXA Traumatic fracture of ribs of left side with pneumothorax S22.42XA; S27.0XXA Prostate nodule with urinary obstruction N40.3; N13.8 Esophageal reflux K21.9 Winged scapula of left side M95.8 BPH with obstruction/lower urinary tract symptoms N40.1; N13.8
--- NOTE | 2022-01-30 15:00 | CT Scan Report ---
CT thoracic spine wo con CLINICAL HISTORY: evaluate for fracture- point tenderness post fall TECHNIQUE: Multidetector row helical CT of the thoracic spine was performed without administration of intravenous contrast. Coronal and sagittal reformations were obtained. Automated dose lowering techn iques and/or adjustment according to patient size were utilized for this exam. Comparison: Comparison is made to CT chest 01/30/2022 FINDINGS: Multiple left rib fractures are seen. No vertebral fracture is seen. Degenerative changes are noted i n the visualized spine. Vertebral body alignment is within normal limits. Again noted is a left hydro pneumothorax and subcutaneous emphysema. IMPRESSION: Multiple left rib fractures seen without evidence of vertebral fractures. ACT 112: Negative or not required by law. Electronically signed by: Jorg eLuis Isidro M.D. 01/30/2022 2:59 PM
--- NOTE | 2022-01-30 15:04 | CT Scan Report ---
LUMBAR SPINE CT CT DOSE: HISTORY: Left-sided back pain. point tenderness with fall- eval for fracture TECHNIQUE: Multiaxial CT images of the lumbar spine were performed and reformatted in the sagittal an d coronal plane without the use of contrast. A dose lowering technique was utilized adhering to the principles of ALARA. COMPARISON: Chest CT 01/30/2022. FINDINGS: No fracture or subluxation within the lumbar spine. The visualized sacrum is intact. Parave rtebral soft tissues are unremarkable. There is severe disc space narrowing at L3-L4 and L4-5 with en dplate osteophytes. There is also moderate central canal narrowing at these levels due to the disc bu lges and facet hypertrophy. Small amount of subcutaneous gas within the left paraspinal location. Thi s is likely secondary to the left chest wall trauma seen on the prior chest CT. IMPRESSION: No fractures within the lumbar spine. ACT 112: Negative or not required by law. Electronically signed by: Eladio Conroy M.D. 01/30/2022 3:02 PM
[2022-01-30] MEDS ORDERED: oxyCODONE HCL IR 5 MG TAB (IMMEDIATE RELEASE) PO PRN (16:29)
[2022-01-30] MEDS ORDERED: KETOROLAC TROMETHAMINE 15 MG/ML VIAL IV PRN (16:29)
[2022-01-30] MEDS ORDERED: ONDANSETRON INJ 2 MG/ML 2 ML VIAL IV PRN (16:29)
[2022-01-30] MEDS ORDERED: ACETAMINOPHEN 325 MG TAB PO PRN (16:29)
[2022-01-30] MEDS ORDERED: MoRPHine SULFATE 2 MG/ML CARP IV PRN (16:29)
[2022-01-30] MEDS: ACETAMINOPHEN 325 MG TAB PO SCH (22:37)
[2022-01-31 05:45] LABS: Basophils # (auto) 0.02 K/uL (0-0.2); Basophils % (auto) 0.2 %; Eosinophils # (auto) 0.09 K/uL (0-0.5); Eosinophils % (auto) 1.1 %; Hematocrit (blood only) 35.8 % (42-52); Hemoglobin 12.2 g/dL (14.0-18.0); Immature Granulocytes # (auto) 0.02 K/uL (0.00-0.02); Immature Granulocytes % (auto) 0.2 %; Lymphocytes # (auto) 0.95 K/uL (1.2-3.4); Lymphocytes % (auto) 11.3 %; Mean Corpuscular Hemoglobin 30.8 pg (25-34); Mean Corpuscular Hgb Conc 34.1 g/dL (32-36); Mean Corpuscular Volume 90.4 fL (80-100); Mean Platelet Volume 9.7 fL (7.4-10.4); Monocytes # (auto) 0.97 K/uL (0.11-0.59); Monocytes % (auto) 11.5 %; Neutrophils # (auto) 6.38 K/uL (1.4-6.5); Neutrophils % (auto) 75.7 %; Platelet Count 174 K/uL (130-400); RDW Coefficient of Variation 13.1 % (11.5-14.5); RDW Standard Deviation 43.4 fL (36.4-46.3); Red Blood Count 3.96 M/uL (4.7-6.1); White Blood Count 8.43 K/uL (4.8-10.8)
[2022-01-31 06:06] LABS: BUN Creatinine Ratio 20.9 (10-20); Calcium 8.8 mg/dl (8.5-10.1); Creatinine Clr Calc Pharmacy 37.2 ml/min; Est GFR (African American) 70.1 ml/min; Est GFR (Non-African American) 60.5 ml/min; Magnesium 1.9 mg/dl (1.7-2.4); Potassium 4.5 mmol/L (3.5-5.1)
[2022-01-31] MEDS: ACETAMINOPHEN 325 MG TAB PO SCH ×3 (06:28→21:31)
--- NOTE | 2022-01-31 07:59 | XRay Report ---
XR chest 1V portable HISTORY: 86 years-old Male evaluation of pneumothorax resolution/worsening follow-up study in a [place] ent with left-sided pneumothorax and left-sided rib fractures COMPARISON: Chest radiograph and chest CT 01/30/2022 TECHNIQUE: Portable AP view of the chest FINDINGS: Cardiac silhouette is enlarged. The patient is mildly rotated. Unchanged left apical pneumothorax wit h pleural separation of 1.9 cm. Small left pleural effusion redemonstrated. Numerous acute left-sided rib fractures are redemonstrated, some of which are slightly displaced. The right lung is clear. Mil d subcutaneous emphysema of the left supraclavicular tissues. Left shoulder rotator cuff calcific ten dinosis. IMPRESSION: 1. Unchanged small left hemopneumothorax with subcutaneous emphysema of the left chest wall and supra clavicular tissues. 2. Numerous acute and displaced left-sided rib fractures redemonstrated. 3. Mild left basilar atelectasis. ACT 112: Negative or not required by law. The above report was generated using voice recognition software. It may contain grammatical, syntax o r spelling errors. Electronically signed by: Luciano Mar M.D. 01/31/2022 7:58 AM
--- NOTE | 2022-01-31 08:13 | XRay Report ---
XR chest 1V portable HISTORY: 86 years-old Male evaluate pneumothroax follow-up study in a patient with left-sided pneumo thorax COMPARISON: Chest CT 01/30/2022, chest radiograph 01/30/2022 TECHNIQUE: Portable AP view of the chest FINDINGS: Cardiac silhouette is enlarged. The patient is mildly rotated. Unchanged left apical pneumothorax wit h pleural separation of 1.9 cm. Small left pleural effusion redemonstrated. Numerous acute left- side d rib fractures are redemonstrated, some of which are slightly displaced. The right lung is clear. Mi ld subcutaneous emphysema of the left chest wall. Left shoulder rotator cuff calcific tendinosis. IMPRESSION: 1. Unchanged small left hemopneumothorax with subcutaneous emphysema of the left chest wall. 2. Numerous acute and displaced left-sided rib fractures redemonstrated. 3. Mild left basilar atelectasis. ACT 112: Negative or not required by law. The above report was generated using voice recognition software. It may contain grammatical, syntax o r spelling errors. Electronically signed by: Luciano Mar M.D. 01/31/2022 8:12 AM
--- NOTE | 2022-01-31 08:23 | Electrocardiogram Report ---
Test Reason : Blood Pressure : / mmHG Vent. Rate : 081 BPM Atrial Rate : 081 BPM P-R Int : 136 ms QRS Dur : 072 ms QT Int : 350 ms P-R-T Axes : 057 021 045 degrees QTc Int : 406 ms Poor data quality, interpretation may be adversely affected Normal sinus rhythm Peaked T waves(consider ischemia,hyperkalemia,etc.) Borderline ECG When compared with ECG of 15-MAR-2004 11:47, Vent. rate has increased BY 32 BPM Otherwise no significant change Confirmed by Rob Gonzalez ([id number]) on 01/31/2022 8:22:59 AM Referred By: REFERRED SELF Confirmed By:Rob Gonzalez
--- NOTE | 2022-01-31 08:32 | Procedure Note ---
Procedure Note Date of Service January 31, 2022 Note Procedure: 8 Kenyan pneumothorax catheter placement on the left Conservation Scientist: Dr. Raj Gonzalez Indication: Traumatic pneumothorax Consent: Signed by patient and verified with timeout prior to procedure Anesthesia: 8 mL's 1% lidocaine without epinephrine local. Procedure: Consent was verified and timeout performed. Appropriate imaging studies were reviewed prior to the procedure. Patient was placed in a seated position in the midclavicular line approximately 2 cm below the clavicle was cleaned and draped using chlorhexidine. A sterile field was established. The skin and subcutaneous tissues were anesthetized with instillation of 1% lidocaine without epinephrine. Using the finder needle I was able to pass over the anterior rib and aspirate air. The parietal pleura was anesthetized with lidocaine as the needle was withdrawn. A small skin donna was made with a scalpel. The 8 Kenyan catheter was then advanced through the skin donna and over the rib into the pleural space. Air was aspirated. The catheter was pushed off the needle into the pleural space and the needle was withdrawn. The catheter was attached to a Pleur-evac suction system with 1+ air leak noted. Catheter was sutured in place and secured using a StatLock skater retaining system. Post procedure chest x- ray is pending. Continue catheter to 20 cm of suction and additional management will depend on imaging and clinical response. The patient tolerated the procedure well without obvious complication Coding CPT Codes Pulmonary/Thoracic - Pulmonary and Thoracic: 57520 Tube thoracostomy ([id number]) [facility] [place] Codes (Charges) Pulmonary/Thoracic Procedure 1: Pulmonary and Thoracic: 93638 Tube thoracostomy
--- NOTE | 2022-01-31 08:34 | Pain Management Consultation ---
Date of Consultation January 31, 2022 Assessment & Plan (1) Traumatic fracture of ribs of left side with pneumothorax: (2) Fracture of multiple ribs of left side: 1. Due to multiple rib fractures the patient is a poor candidate for intercostal nerve block. 2. Will initiate Nucynta 50 mg every 4 hours for as needed breakthrough pain as the patient had sedation with IV morphine at 2 mg dose per nursing staff. [place] IV morphine for pain not well controlled with Nucynta. Consider dose re duction of IV morphine moving forward pending response. 3. Should the patient struggle with pain control, could consider P[employer] WORK[employer] Dilaudid versus placement of epidural catheter by anesthesia for continuous pain control. 4. Will continue to follow History of Present Illness Reason for Consultation: Chest wall pain with history of 7 left-sided rib fractures status post fall Requesting Physician: JAM Schneider Attending Physician: Hamida Palafox MD History of Present Illness Mr. Swann is an 86-year-old white male who was shoveling snow yesterday whenever he fell onto his left side back. He reported immediate difficulties with breathing and was transported emergently by his daughter. The patient was found to have 7 rib fractures including rib 4 through 10. Patient reports that his current pain is a 5-6/10 but his pain was an 8-9/10 earlier whenever he woke up. He was provided 2 mg of IV morphine which provided significant relief of his typical pain per his report. Nursing staff reported that it did cause significant sedation. He reports his discomfort is in the left lateral and anterior chest wall described as aching and episodically sharp with movement or deep breathing. He feels that he is better able to take a deeper breath while sitting up this morning than he was prior to the IV morphine. He denies any thoracic back pain or thoracic radicular component to his pain complaints. The patient was also found to have pneumothorax. Patient denies any other pain complaints at this time. Patient denies axial neck pain or cervical radicular component the pain complaints. Patient has no further constitutional complaints. Plan of care discussed with Dr. Chavez. Pain Assessment Full Body Front + Back: 1. Left lateral/lateral anterior chest wall Pain scale - at its best (0-10): 5 Pain scale - at its worst (0-10): 9 Allergies Allergy/AdvReac Type Severity Reaction Status Date / Time No Known Allergies Allergy Unknown Verified 07/12/21 09:55 Home Medications Medication Instructions Recorded Confirmed Type calcium carbonate 600 mg calcium 600 mg PO DAILY 11/10/19 01/30/22 History (1,500 mg) tablet (Calcium) cyanocobalamin (vitamin B-12) 1,000 mcg PO DAILY 11/10/19 01/30/22 History 1,000 mcg capsule omeprazole 20 mg capsule,delayed 20 mg PO DAILY 11/10/19 01/30/22 History release acetaminophen 325 mg tablet 325 mg PO QID PRN 06/09/21 01/30/22 History (Tylenol) finasteride 5 mg tablet 5 mg PO DAILY #90 tab 09/18/21 01/30/22 Rx Pain History Pain Intensity Pain scale - at its best (0-10): 5 Pain scale - at its worst (0-10): 9 Patient History Medical History (Updated 01/31/22 @ 08:46 by Francisco De La Vega PA-C) Benign polyp of large intestine BPH (benign prostatic hyperplasia) Esophageal reflux External hemorrhoid Surgical History H/O transurethral resection of prostate History of appendectomy History of cholecystectomy History of herniorrhaphy Family History Father Myocardial infarction Brother Allergic rhinitis Mother Allergic rhinitis Congestive heart disease Social History Smoking Status: Never smoker Tobacco Type: Cigarettes Hx Alcohol Use: No Hx Substance Use: No Preferred Language: Welsh Communication Ability: Effective Side Panel Hanger Required: No Beliefs That Will Affect Care: None marital status: Single Current Living Situation: Alone and Family current occupational status: retired How many Children do You have: 1 Feels Safe at Home: Yes Assistive Devices: None Physical Exam Physical Exam: General: Patient sitting up eating breakfast upon entering the room in no acute distress. Speech and thought process appropriate. Mood and affect appropriate. Cognition intact. Head: Normocephalic and atraumatic. ENT: No evidence of nasal or oral mucosal lesions. Mucous membranes are moist. Eyes: Pupils equal round reactive to light. Neck: Supple without adenopathy and full range of motion. Chest: Nontender to palpation of the costosternal junction. Patient is minimally tender to direct palpation over the left lateral and anterior chest wall. Minimally tender with AP and lateral compression of the chest wall. No palpable abnormalities appreciated. Abdomen: Soft and nondistended. No organomegaly. Bowel sounds active. Back/spine: No focal midline tenderness to palpation or percussion. Moderately tender in the left mid-lower thoracic paravertebral musculature extending to the posterior lateral chest wall. Lower extremities: Sensation intact. Strength testing 4+/5 throughout without focal deficit. No appreciable edema. Neurologic: Cranial nerves grossly intact. Ambulatory function not witnessed. Results (Pain [facility]) Diagnostic Review CT Findings: [place], [place] [phone] CT Scan Report Patient:DANILO SWANN Admit Date:01/30/22 MR#:[id number] Address1:[address] [place] [address] Acct ID:[id number] Address2: Date:1935 [facility] Zip:[place] [address] Age:86 Location:ED Sex:M Room/Bed: Att Phy: Diagnosis:FALL, SOB, LT SHOULDER PAIN Valentina Phy:Sheela Mejia M.D. Service Date:01/30/22 [facility] Phy: Interpreting Phy:Jorge Luis Isidro [facility] Phy: Ordering Phy:Bubba Anderson cc: ~ CT thoracic spine wo con CLINICAL HISTORY: evaluate for fracture- point tenderness post fall TECHNIQUE: Multidetector row helical CT of the thoracic spine was performed without administration of intravenous contrast. Coronal and sagittal reformations were obtained. Automated dose lowering techniques and/or adjustment according to patient size were utilized for this exam. Comparison: Comparison is made to CT chest 01/30/2022 FINDINGS: Multiple left rib fractures are seen. No vertebral fracture is seen. Degenerative changes are noted in the visualized spine. Vertebral body alignment is within normal limits. Again noted is a left hydropneumothorax and subcutaneous emphysema. IMPRESSION: Multiple left rib fractures seen without evidence of vertebral fractures. ACT 112: Negative or not required by law. Electronically signed by: Jorge Luis Isidro M.D. 01/30/2022 2:59 PM Dictated:01/30/22 1450 Transcribed: 01/30/22 1450 [facility], [place] [phone] CT Scan Report Patient:DANILO SWANN Admit Date:01/30/22 MR#:[id number] Address1:[address] [place] [address] Acct ID:[id number] Address2: Date:1935 [facility] Zip:[place] [address] Age:86 Location:ED Sex:M Room/Bed: Att Phy: Diagnosis:FALL, SOB, LT SHOULDER PAIN Valentina Phy:Sheela Mejia M.D. Service Date:01/30/22 [facility] Phy: Interpreting Phy:Eladio Conroy MDAdmit Phy: Ordering Phy:Bubba Anderson cc: ~ LUMBAR SPINE CT CT DOSE: HISTORY: Left-sided back pain. point tenderness with fall- eval for fracture TECHNIQUE: Multiaxial CT images of the lumbar spine were performed and reformatted in the sagittal and coronal plane without the use of contrast. A dose lowering technique was utilized adhering to the principles of ALARA. COMPARISON: Chest CT 01/30/2022. FINDINGS: No fracture or subluxation within the lumbar spine. The visualized sacrum is intact. Paravertebral soft tissues are unremarkable. There is severe disc space narrowing at L3-L4 and L4-5 with endplate osteophytes. There is also moderate central canal narrowing at these levels due to the disc bulges and facet hypertrophy. Small amount of subcutaneous gas within the left paraspinal location. This is likely secondary to the left chest wall trauma seen on the prior chest CT. IMPRESSION: No fractures within the lumbar spine. ACT 112: Negative or not required by law. Electronically signed by: Eladio Conroy M.D. 01/30/2022 3:02 PM Dictated:01/30/221451 Transcribed: 01/30/22 145 [facility], [place] [phone] CT Scan Report Patient:DANILO SWANN Admit Date:01/30/22 MR#:[id number] Address1:[address] [place] [address] Acct ID:[id number] Address2: Date:1935 [facility] Zip:[place] [address] Age:86 Location:ED Sex:M Room/Bed: Att Phy: Diagnosis:FALL, SOB, LT SHOULDER PAIN Valentina Phy:Sheela Mejia M.D. Service Date:01/30/22 Andrey Phy: Interpreting Phy:Jorge Luis Isidro MDAdmit Phy: Ordering Phy:Stiven Walters D.O. cc: ~ CT chest diagnostic wo con CLINICAL HISTORY: rib fx, left pneumothorax TECHNIQUE: Multidetector row helical CT of the chest was performed. Coronal and sagittal reformations were obtained. Automated dose lowering techniques and/or adjustment according to patient size were utilized for this exam. Comparison: None available at the time of this dictation. FINDINGS: Lungs and pleura: There is a small right effusion and right pneumothorax. Associated atelectasis is seen. Heart and pericardium: Cardiomegaly is seen with biatrial enlargement. Vessels: Moderate atherosclerotic changes in the aorta and coronary arteries. Mediastinum and christina: Unremarkable. Chest wall and lower neck: Subcutaneous emphysema is seen. Abdomen: Splenic calcifications are seen which may represent prior granulomatous disease. A hepatic cyst is partially visualized. Bones: Degenerative changes in the thoracic spine. Multiple fractured ribs are seen on the right including the posterior fourth, fifth, sixth, seventh, eighth, ninth, and 10th ribs. IMPRESSION: Multiple left rib fractures with underlying hydropneumothorax. ACT 112: Negative or not required by law. Electronically signed by: Jorge Luis Isidro M.D. 01/30/2022 1:30 PM Dictated:01/30/22 1321 Transcribed: 01/30/22 1321 Radiology Findings: [facility], [place] [phone] XRay Report Patient:DANILO SWANN Admit Date:01/30/22 MR#:[id number] Address1:[address] [place] [address] Acct ID:[id number] Address2: Date:1935 [facility] Zip:[place] [address] Age:86 Location: Sex:M Room/Bed:E218-1 Att Phy:Hamida Palafox MD Diagnosis:FALL WITH PNEUMOTHORAX Valentina Phy:Sheela Mejia M.D. Service Date:01/31/22 [facility] Phy: Interpreting Phy:Luciano MarAdmit Phy:Edward Lovell MD Ordering Phy:Bubba Anderson cc: ~ XR chest 1V portable HISTORY: 86 years-old Male evaluation of pneumothorax resolution/worsening follow-up study in a patient with left-sided pneumothorax and left-sided rib fractures COMPARISON: Chest radiograph and chest CT 01/30/2022 TECHNIQUE: Portable AP view of the chest FINDINGS: Cardiac silhouette is enlarged. The patient is mildly rotated. Unchanged left apical pneumothorax with pleural separation of 1.9 cm. Small left pleural effusion redemonstrated. Numerous acute left-sided rib fractures are redemonstrated, some of which are slightly displaced. The right lung is clear. Mild subcutaneous emphysema of the left supraclavicular tissues. Left shoulder rotator cuff calcific tendinosis. IMPRESSION: 1. Unchanged small left hemopneumothorax with subcutaneous emphysema of the left chest wall and supraclavicular tissues. 2. Numerous acute and displaced left-sided rib fractures redemonstrated. 3. Mild left basilar atelectasis. ACT 112: Negative or not required by law. The above report was generated using voice recognition software. It may contain grammatical, syntax or spelling errors. Electronically signed by: Luciano Mar M.D. 01/31/2022 7:58 AM Dictated:01/31/22 0755 Transcribed: 01/31/22 0755
--- NOTE | 2022-01-31 08:36 | Pulmonology Progress Note ---
Date of Service January 31, 2022 Assessment & Plan (1) Traumatic fracture of ribs of left side with pneumothorax: (2) Fall: Plan: Impression: 86-year-old male with a traumatic pneumothorax with 7 posterior right-sided rib fractures. His pneumothorax has not shown any improvement with conservative management over the last 18 hours. Small 8 Swedish chest tube was placed anteriorly this morning for evacuation of pneumothorax with follow-up imaging pending. Recommendation: 1. Traumatic pneumothorax: Status post 8 Swedish pneumothorax catheter placement. Await follow-up imaging. Keep catheter to 20 cm of wall suction until air leak resolves. We will then pursue trials of clamping with follow-up imaging prior to discontinuation of the catheter. 2. Pain control per primary service and acute pain service. 3. Continue oxygen currently. We will continue to follow. Daily chest x-rays ordered. Please call if questions. Admission and Anticipated Discharge Date Admission Date: January 30, 2022 Subjective Patient seen and examined. He feels that his pain control is better today. He is not having any chest pain or shortness of breath. He remains on oxygen. He is tolerating a diet. He is not really been ambulatory but can take a deeper breath today and cough with some residual pain. No crepitus. Review of Systems Review of Systems: All systems reviewed & are unremarkable except as noted in Subjective Physical Exam Constitutional: WD/WN, vitals as above Neck: trachea midline, no thyromegaly No crepitus Respiratory: normal respiratory effort, lungs clear to auscultation Cardiovascular: RRR, no murmur, no edema Gastrointestinal (Abdomen): normal bowel sounds, soft, nontender, no hepatosplenomegaly Musculoskeletal: Extremities: extremities normal to inspection Skin: no rashes, warm and dry Lymphatic: no cervical lymphadenopathy Results & Data Results & Data ([facility]) Vital Signs (Past 12 Hours) Vital Signs Temp Pulse Pulse Resp BP Pulse Ox 01/31/22 07:04 36.7 C 73 16 150/71 H 100 01/31/22 04:15 36.6 C 81 18 165/78 H 100 01/31/22 00:00 76 01/30/22 23:06 36.6 C 78 18 172/72 H 100 Laboratory Results 01/31/22 05:35 01/31/22 05:35 Diagnostic Findings Chest x-ray today was independently reviewed. It demonstrates no significant change in the left apical pneumothorax. Rib fractures unchanged PG Care Time/CCT Total # of Minutes Spent Total Time Spent with Patient: Total time spent is greater than 50% in coordination of care (as documented) at patient's floor/unit and/or counseling patient: Coding Level of Care Code 42547 Subseq Hosp Care Lvl 2 Diagnoses Traumatic fracture of ribs of left side with pneumothorax S22.42XA; S27.0XXA Fall W19.XXXA
[2022-01-31] MEDS ORDERED: TAPENTADOL HCL 50 MG TAB PO PRN (08:50)
[2022-01-31] MEDS: FINASTERIDE 5 MG TAB PO SCH (09:05)
[2022-01-31] MEDS: PANTOprazole 40 MG TAB PO SCH (09:05)
--- NOTE | 2022-01-31 09:25 | XRay Report ---
XR chest 1V portable at 8:40 AM CLINICAL HISTORY: Status post chest tube placement. Evaluate pneumothorax. COMPARISON STUDY: 01/31/2022 at 6:30 AM TECHNIQUE: 1 view of the chest FINDINGS: Single frontal view of the chest demonstrates the cardiomediastinal silhouette to be within normal li mits. There has been interval placement of a left-sided chest tube with decrease in previously identi fied left pneumothorax. Pleural separation now measures 1.1 cm. There is again evidence for small lef t pleural effusion and interval development of left basilar atelectasis. There is no right pleural effusion. No alveolar opacities are identified. There is no evidence for va scular congestion. There is no acute osseous pathology. IMPRESSION: 1. Status post left-sided chest tube placement with interval decrease in left apical pneumothorax as described. 2. Small left pleural effusion with increasing left basilar atelectasis. ACT 112: Negative or not required by law. Electronically signed by: Bijan Garcia M.D. 01/31/2022 9:23 AM
[2022-01-31] MEDS: LIDOCAINE 5% 1 PATCH TD SCH ×2 (10:04→21:30)
--- NOTE | 2022-01-31 10:12 | Hospitalist Progress Note ---
Date of Service January 31, 2022 Assessment & Plan (1) Fall: Plan: Fall appears mechanical; only injuries rib fractures with resultant hydropneumothoraxpain control, incentive spirometry (2) Traumatic fracture of ribs of left side with pneumothorax: Plan: Pulmonary following; pain controlacute pain management team following; incentive spirometry (3) Prostate nodule with urinary obstruction: Plan: Follows with urology Continue with Finasteride (4) Esophageal reflux: Plan: Continue omeprazole 20mg daily (5) Winged scapula of left side: Plan: Follows with Dr. Edwards noting some thoracic nerve pain with this as well as muscle tightening OT/PT to maintain mobility (6) BPH with obstruction/lower urinary tract symptoms: Plan: As above Plan: Preventative subcut Heparin Admission and Anticipated Discharge Date Admission Date: January 30, 2022 Subjective Follow-up of fall and pneumothoraxdoing well; had no complaints; fall appears mechanical Physical Exam Physical Exam: Constitutional and general: No acute distress, looks biologic age Head and face: No puffiness, atraumatic Eyes: No scleral icterus, extraocular movements normal Neck: Supple, no JVD Musculoskeletal: No acute joint swelling, no bony abnormalities Skin/dermatologic/integument: No rash, no purpura Hematologic and lymphatic: pallor +, no petechia Gastrointestinal/abdomen: Nondistended, soft, nonacute Neurologic: Cranial nerves intact, nonfocal Psychiatry: Awake, alert, pleasant, communicative Cardiovascular: Heart rhythm regular, no rub, no murmur, no gallop Respiratory: Chest movements equal, no use of accessory muscles, no adventitious sounds; decreased breath sounds left side Extremities: No edema, no cyanosis Results & Data Results & Data ([facility]) Vital Signs (Past 12 Hours) Vital Signs Temp Pulse Pulse Resp BP Pulse Ox 01/31/22 07:04 36.7 C 73 16 150/71 H 100 01/31/22 04:15 36.6 C 81 18 165/78 H 100 01/31/22 00:00 76 01/30/22 23:06 36.6 C 78 18 172/72 H 100 Laboratory Results Laboratory Results - last 24 hr 01/30/22 01/30/22 01/30/22 13:00 13:00 13:00 WBC 10.19 RBC 4.12 L Hgb 12.6 L Hct 37.7 L MCV 91.5 MCH 30.6 MCHC 33.4 RDW Std Deviation 44.5 RDW Coeff of Aysha 13.4 Plt Count 172 MPV 9.7 Immature Gran % (Auto) 0.4 Neut % (Auto) 83.5 Lymph % (Auto) 8.5 [place] % (Auto) 6.5 Eos % (Auto) 0.8 Baso % (Auto) 0.3 Neut # (Auto) 8.51 H Lymph # (Auto) 0.87 L [place] # (Auto) 0.66 H Eos # (Auto) 0.08 Baso # (Auto) 0.03 Immature Gran # (Auto) 0.04 H PT 10.9 INR 1.0 Sodium 140 Potassium 3.6 Chloride 113 H Carbon Dioxide 24 Anion Gap 3 BUN 13 Creatinine 0.80 Est Cr Clr Drug Dosing Not Reportable Est GFR ( Amer) 93.8 Est GFR (Non-Af Amer) 80.9 BUN/Creatinine Ratio 16.3 Glucose 90 Calcium 7.6 L Magnesium SARS-CoV-2, RNA, NAAT 01/30/22 01/31/22 01/31/22 13:50 05:35 05:35 WBC 8.43 RBC 3.96 L Hgb 12.2 L Hct 35.8 L MCV 90.4 MCH 30.8 MCHC 34.1 RDW Std Deviation 43.4 RDW Coeff of Aysha 13.1 Plt Count 174 MPV 9.7 Immature Gran % (Auto) 0.2 Neut % (Auto) 75.7 Lymph % (Auto) 11.3 [place] % (Auto) 11.5 Eos % (Auto) 1.1 Baso % (Auto) 0.2 Neut # (Auto) 6.38 Lymph # (Auto) 0.95 L [place] # (Auto) 0.97 H Eos # (Auto) 0.09 Baso # (Auto) 0.02 Immature Gran # (Auto) 0.02 PT INR Sodium 137 Potassium 4.5 D Chloride 107 Carbon Dioxide 24 Anion Gap 6 BUN 23 Creatinine 1.10 D Est Cr Clr Drug Dosing 37.2 Est GFR ( Amer) 70.1 Est GFR (Non-Af Amer) 60.5 BUN/Creatinine Ratio 20.9 H Glucose 88 Calcium 8.8 Magnesium 1.9 SARS-CoV-2, RNA, NAAT NEGATIVE PG Care Time/CCT Total # of Minutes Spent Total Time Spent with Patient: Total time spent is greater than 50% in coordination of care (as documented) at patient's floor/unit and/or counseling patient: Coding Level of Care Code 21169 Subseq Hosp Care Lvl 2 Diagnoses Fall W19.XXXA Traumatic fracture of ribs of left side with pneumothorax S22.42XA; S27.0XXA Prostate nodule with urinary obstruction N40.3; N13.8 Esophageal reflux K21.9 Winged scapula of left side M95.8 BPH with obstruction/lower urinary tract symptoms N40.1; N13.8
[2022-01-31] MEDS ORDERED: HALOPERIDOL LACTATE 5 MG/ML 1 ML VIAL ONE ×2 (13:34→13:47)
[2022-01-31] MEDS ORDERED: HALOPERIDOL LACTATE 5 MG/ML 1 ML VIAL IV STA (13:46)
[2022-01-31] MEDS ORDERED: OLANZapine 10 MG/2.1 ML SDV IM PRN (13:51)
[2022-01-31] MEDS: HEPARIN SOD 5,000 UNIT/0.5 ML VIAL SQ SCH (21:29)
[2022-01-31] MEDS: HALOPERIDOL LACTATE 5 MG/ML 1 ML VIAL IV PRN (22:41)
[2022-02-01] MEDS: ACETAMINOPHEN 325 MG TAB PO SCH ×3 (07:13→21:00)
[2022-02-01] MEDS: PANTOprazole 40 MG TAB PO SCH (07:13)
[2022-02-01] MEDS: FINASTERIDE 5 MG TAB PO SCH (07:13)
--- NOTE | 2022-02-01 08:05 | Pulmonology Progress Note ---
Date of Service February 01, 2022 Assessment & Plan (1) Traumatic fracture of ribs of left side with pneumothorax: (2) Fall: Plan: Impression: 86-year-old male with a traumatic pneumothorax with 7 posterior right-sided rib fractures. He status post pneumothorax catheter placement 01/31/2022 and this morning there is no evidence of an air leak and chest x-ray demonstrates near complete resolution of the apical pneumothorax. Recommendation: 1. Traumatic pneumothorax: Status post 8 [place] pneumothorax catheter placement. We will clamp the chest tube and repeat the chest x-ray in 3 or 4 hours. If the lung remains up, the pneumothorax catheter will be removed. 2. Pain control per primary service and acute pain service. 3. Continue oxygen currently. 4. Management of the patient's other medical issues per primary admitting service We will continue to follow while the chest tube is in place. Please call if questions. Admission and Anticipated Discharge Date Admission Date: January 30, 2022 Subjective Patient seen and examined. He is less verbose today. He received multiple medications over the last 24 hours due to significant delirium. He appears much more calm today. He denies any chest pain palpitations or shortness of breath. Review of Systems Review of Systems: Unobtainable due to cognitive status Physical Exam Constitutional: WD/WN, vitals as above Neck: trachea midline, no thyromegaly Respiratory: normal respiratory effort, lungs clear to auscultation Cardiovascular: RRR, no murmur, no edema Gastrointestinal (Abdomen): normal bowel sounds, soft, nontender, no hepatosplenomegaly Musculoskeletal: Extremities: extremities normal to inspection Skin: no rashes, warm and dry Lymphatic: no cervical lymphadenopathy Results & Data Results & Data ([facility]) Vital Signs (Past 12 Hours) Vital Signs Temp Pulse Pulse Resp BP Pulse Ox 02/01/22 07:10 36.7 C 88 16 163/69 H 96 02/01/22 07:03 87 02/01/22 00:23 37.6 C H 80 16 140/72 96 01/31/22 22:20 107 H Laboratory Results 01/31/22 05:35 01/31/22 05:35 Diagnostic Findings Chest x-ray today was independently reviewed. There is a small apical pneumothorax but it appears significantly reduced from previous. PG Care Time/CCT Total # of Minutes Spent Total Time Spent with Patient: Total time spent is greater than 50% in coordination of care (as documented) at patient's floor/unit and/or counseling patient: Coding Level of Care Code 21398 Subseq Hosp Care Lvl 2 Diagnoses Traumatic fracture of ribs of left side with pneumothorax S22.42XA; S27.0XXA Fall W19.XXXA
[2022-02-01] MEDS: HEPARIN SOD 5,000 UNIT/0.5 ML VIAL SQ SCH ×2 (08:15→19:55)
--- NOTE | 2022-02-01 09:08 | XRay Report ---
XR chest 1V portable CLINICAL HISTORY: Follow up left pneumothorax status post chest tube placement. COMPARISON STUDY: 01/31/2022 TECHNIQUE: 1 view of the chest FINDINGS: Single frontal view of the chest demonstrates the cardiomediastinal silhouette to be within normal li mits. Compared to the previous examination, only a very small apical pneumothorax remains present. Ch est tube is again seen. There is again evidence for small left pleural effusion with decreased left basilar atelectasis. The remainder of the lungs are clear of alveolar opacities. There is no evidence for right pleural effusi on. There is no evidence for vascular congestion. There is no acute osseous pathology. IMPRESSION: 1. Compared to previous examination, only a very small apical pneumothorax remains present. 2. Small left pleural effusion with decreased left basilar atelectasis. ACT 112: Negative or not required by law. Electronically signed by: Bijan Garcia M.D. 02/01/2022 9:06 AM
--- NOTE | 2022-02-01 10:12 | Hospitalist Progress Note ---
Date of Service February 01, 2022 Assessment & Plan (1) Fall: Plan: Fall appears mechanical; only injuries rib fractures with resultant hydropneumothoraxpain control, incentive spirometry (2) Traumatic fracture of ribs of left side with pneumothorax: Plan: Status post chest tube; pulmonary following; pain controlacute pain management team following; (3) Delirium: Plan: Acute hyperactive deliriumlikely med related; meds only as needed, emphasized with nursing yesterday to use nonpharmacologic measures; psychiatry consulted (4) Prostate nodule with urinary obstruction: Plan: Follows with urology Continue with Finasteride (5) Esophageal reflux: Plan: Continue omeprazole 20mg daily (6) Winged scapula of left side: Plan: Follows with Dr. Edwards noting some thoracic nerve pain with this as well as muscle tightening OT/PT to maintain mobility (7) BPH with obstruction/lower urinary tract symptoms: Plan: As above Plan: Preventative subcut Heparin Admission and Anticipated Discharge Date Admission Date: January 30, 2022 Subjective Follow-up of fall and left pneumothorax, acute delirium yesterdayresting Physical Exam Physical Exam: Constitutional and general: No acute distress, looks biologic age; sedate Head and face: No puffiness, atraumatic Eyes: No scleral icterus, extraocular movements normal Neck: Supple, no JVD Musculoskeletal: No acute joint swelling, no bony abnormalities Skin/dermatologic/integument: No rash, no purpura Hematologic and lymphatic: pallor +, no petechia Gastrointestinal/abdomen: Nondistended, soft, nonacute Neurologic: Cranial nerves intact, nonfocal Cardiovascular: Heart rhythm regular Respiratory: Chest movements equal, no use of accessory muscles, no adventitious sounds; decreased breath sounds left side Extremities: No edema, no cyanosis Results & Data Results & Data ([facility]) Vital Signs (Past 12 Hours) Vital Signs Temp Pulse Pulse Resp BP Pulse Ox 02/01/22 07:10 36.7 C 88 16 163/69 H 96 02/01/22 07:03 87 02/01/22 00:23 37.6 C H 80 16 140/72 96 01/31/22 22:20 107 H Laboratory Results Chest X-Ray 02/01/22 08:30 XR chest 1V portable CLINICAL HISTORY: Follow up left pneumothorax status post chest tube placement. COMPARISON STUDY: 01/31/2022 TECHNIQUE: 1 view of the chest FINDINGS: Single frontal view of the chest demonstrates the cardiomediastinal silhouette to be within normal limits. Compared to the previous examination, only a very small apical pneumothorax remains present. Chest tube is again seen. There is again evidence for small left pleural effusion with decreased left basilar atelectasis. The remainder of the lungs are clear of alveolar opacities. There is no evidence for right pleural effusion. There is no evidence for vascular congestion. There is no acute osseous pathology. IMPRESSION: 1. Compared to previous examination, only a very small apical pneumothorax remains present. 2. Small left pleural effusion with decreased left basilar atelectasis. ACT 112: Negative or not required by law. Electronically signed by: Bijan Garcia M.D. 02/01/2022 9:06 AM PG Care Time/CCT Total # of Minutes Spent Total Time Spent with Patient: Total time spent is greater than 50% in coordination of care (as documented) at patient's floor/unit and/or counseling patient: Coding Level of Care Code 01224 Subseq Hosp Care Lvl 2 Diagnoses Fall W19.XXXA Traumatic fracture of ribs of left side with pneumothorax S22.42XA; S27.0XXA Prostate nodule with urinary obstruction N40.3; N13.8 Esophageal reflux K21.9 Winged scapula of left side M95.8 BPH with obstruction/lower urinary tract symptoms N40.1; N13.8 Delirium R41.0
--- NOTE | 2022-02-01 11:39 | Psychiatric Consultation ---
Date of Consultation February 01, 2022 Impression / Recommendations Impression Diagnostically consistent with encephalopathy/hyperactive delirium. Agree with Dr. Palafox that combination of his age, hospital admission and need for opioids likely caused the delirium. Option to continue with haldol IV though less safety data available for IV formulation so would try po if he agrees. If IV is needed his QTc is normal which is good and if future IV doses are required would ensure he's on telemetry or monitor QTc with daily EKG. Could also try olanzapine first if non-po option is needed. -1-on-1 given periods of agitation, with goal of optimizing behavioral de- escalation and reassurance, can discontinue once delirium resolves -For behavioral emergency: haldol 2.5 mg po BID prn for agitation OR olanzapine 2.5 mg IM x 1 (DO NOT exceed 10mg per 24 hours, check EKG if IM dose required, NEVER co-administer with IM or IV benzodiazepines). -Continue medical management of pain attempting to limit as possible use of deliriogenic medications (benzodiazepines, opioids, anticholinergics) -Continue with delirium prevention measures: raising blinds during the day, closing at night, frequent re-orientation, contact with family/friends, explaining procedures/nursing care measures prior to physical contact, correct any hearing and visual impairments (1) Encephalopathy acute: see above Psych History Identifying Data 86 yo man with history of BPH, GERD, admitted for fall with rib fracture and pneumothorax. Psychiatry consulted for delirium management recommendations. Chief Complaint sleeping History of Present Illness Bar was admitted after rib fracture and pneumothorax receiving scheduled pain medication and then developed increased confusion and agitation with care, pulling out chest tube and believing that medical providers were intruding in his home. When seen by psych liason last night he believed he was in his garage or at his daughter's home. Hospitalist provider started haldol IV and olanzapine prn for behavioral emergency with reportedly good effect from chart review. Today Bar is sleeping and it was felt to not be beneficial to wake him up given agitation and ongoing need to have chest tube in place. Past Psychiatric History Previous Psych History: none known Allergies Allergy/AdvReac Type Severity Reaction Status Date / Time No Known Allergies Allergy Unknown Verified 07/12/21 09:55 Home Medications Medication Instructions Recorded Confirmed Type calcium carbonate 600 mg calcium 600 mg PO DAILY 11/10/19 01/30/22 History (1,500 mg) tablet (Calcium) cyanocobalamin (vitamin B-12) 1,000 mcg PO DAILY 11/10/19 01/30/22 History 1,000 mcg capsule omeprazole 20 mg capsule,delayed 20 mg PO DAILY 11/10/19 01/30/22 History release acetaminophen 325 mg tablet 325 mg PO QID PRN 06/09/21 01/30/22 History (Tylenol) finasteride 5 mg tablet 5 mg PO DAILY #90 tab 09/18/21 01/30/22 Rx Family History denied Substance Abuse History quit drinking alcohol and using tobacco many years ago Personal History Living Arrangements: Home Marital Status: Beliefs That Will Affect Care: None Patient History Medical History Benign polyp of large intestine BPH (benign prostatic hyperplasia) Esophageal reflux External hemorrhoid Surgical History H/O transurethral resection of prostate History of appendectomy History of cholecystectomy History of herniorrhaphy Family History Father Myocardial infarction Brother Allergic rhinitis Mother Allergic rhinitis Congestive heart disease Social History Smoking Status: Never smoker Tobacco Type: Cigarettes Hx Alcohol Use: No Hx Substance Use: No Preferred Language: [place] Communication Ability: Effective 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 Beliefs That Will Affect Care: None marital status: Single Current Living Situation: Alone and Family current occupational status: retired How many Children do You have: 1 Feels Safe at Home: Yes Assistive Devices: Glasses Physical Exam Psychiatric: Orientation: + not alert Apperance: appropriately dressed and appropriately groomed Motor Behavior: no abnormal motor movements Vital Signs (Past 24 Hours): Last Vital Signs Temp 36.7 C 02/01/22 07:10 Pulse 88 02/01/22 07:10 Resp 16 02/01/22 07:10 BP 163/69 H 02/01/22 07:10 Pulse Ox 96 02/01/22 07:10 Review of Systems Unobtainable due to reduced consciousness Results & Data (PSY) Diagnostic Findings EKG QTc reviewed Medications Administered Acetaminophen (Acetaminophen 325 Mg Tab) 650 mg PO Q8 MICHELINE Stop: 03/01/22 21:59 Last Admin: 02/01/22 07:13 Dose: 650 mg Documented by: [id number] Admin: 01/31/22 21:31 Dose: 650 mg Documented by: [id number] Admin: 01/31/22 13:21 Dose: 650 mg Documented by: [id number] Admin: 01/31/22 06:28 Dose: 650 mg Documented by: [id number] Admin: 01/30/22 22:37 Dose: 650 mg Documented by: [id number] Finasteride (Finasteride 5 Mg Tab) 5 mg PO DAILY MICHELINE Stop: 03/02/22 08:59 Last Admin: 02/01/22 07:13 Dose: 5 mg Documented by: [id number] Admin: 01/31/22 09:05 Dose: 5 mg Documented by: [id number] Haloperidol Lactate (Haloperidol Lactate 5 Mg/Ml 1 Ml Vial) 3 mg IV Q6 PRN PRN Reason: Agitation Stop: 03/02/22 13:48 Last Admin: 01/31/22 22:41 Dose: 3 mg Documented by: [id number] Heparin Sodium (Porcine) (Heparin Sod 5,000 Unit/0.5 Ml Vial) 5,000 units SQ Q12 MICHELINE Stop: 03/02/22 20:59 Last Admin: 02/01/22 08:15 Dose: Not Given Documented by: [id number] Admin: 01/31/22 21:29 Dose: 5,000 units Documented by: [id number] Lidocaine (Lidocaine 5% 1 Patch) 1 patch TD HS MICHELINE Stop: 03/02/22 20:59 Last Admin: 01/31/22 21:30 Dose: 1 patch Documented by: [id number] Miscellaneous (Remove Lidoderm Patch) 1 ea N/A DAILY MICHELINE Stop: 03/02/22 09:59 Last Admin: 02/01/22 08:15 Dose: 1 ea Documented by: [id number] Admin: 01/31/22 10:00 Dose: 1 ea Documented by: [id number] Morphine Sulfate (Morphine Sulfate 2 Mg/Ml Carp) 2 mg IV Q6 PRN PRN Reason: Severe Pain Stop: 02/13/22 16:28 Last Admin: 01/31/22 03:29 Dose: 2 mg Documented by: [id number] Olanzapine (Olanzapine 10 Mg/2.1 Ml Sdv) 10 mg IM Q8 PRN PRN Reason: Agitation Stop: 03/02/22 13:59 Last Admin: 01/31/22 14:08 Dose: 10 mg Documented by: [id number] Pantoprazole Sodium (Pantoprazole 40 Mg Tab) 40 mg PO DAILY MICHELINE Stop: 03/02/22 08:59 Last Admin: 02/01/22 07:13 Dose: 40 mg Documented by: [id number] Admin: 01/31/22 09:05 Dose: 40 mg Documented by: [id number] Tapentadol (Tapentadol Hcl 50 Mg Tab) 50 mg PO Q4H PRN PRN Reason: Pain Stop: 02/14/22 08:49 Last Admin: 01/31/22 10:06 Dose: 50 mg Documented by: [id number] Coding Level of Care Code 72334 Inpt Consult Level 3 Diagnoses Encephalopathy acute G93.40
[2022-02-01] MEDS ORDERED: OLANZapine 10 MG/2.1 ML SDV IM PRN (11:50)
--- NOTE | 2022-02-01 12:26 | XRay Report ---
XR chest 1V portable at 12:08 PM CLINICAL HISTORY: Follow-up left apical pneumothorax. Chest tube.. COMPARISON STUDY: 02/01/2022 at 6:32 AM TECHNIQUE: 1 view of the chest FINDINGS: Single frontal view of the chest demonstrates the cardiomediastinal silhouette to be within normal li mits. Left-sided chest tube is again seen. Compared to the earlier study, previously identified left apical pneumothorax is not identified. The lungs are clear of alveolar opacities. There is again evid ence for small left pleural effusion and minimal residual left basilar atelectasis. There is no right pleural effusion. There is no evidence for vascular congestion. There is no acute osseous pathology. IMPRESSION: 1. Compared to the earlier study, there is minimal apical pneumothorax on the left is not seen. 2. Small left pleural effusion and left basilar atelectasis are again noted. ACT 112: Negative or not required by law. Electronically signed by: Bijan Garcia M.D. 02/01/2022 12:25 PM
--- NOTE | 2022-02-01 12:42 | Procedure Note ---
Procedure Note Date of Service February 01, 2022 Note Procedure: Removal of pneumothorax catheter. Follow-up chest x-ray 4 hours after the tube was then clamped demonstrated no residual pneumothorax. The patient sitting up in a chair and doing well clinically. He is off oxygen. No pain. The dressing was taken down. The retaining suture was removed. On full expiration, the pneumothorax catheter was removed with application of an occlusive dressing over the insertion site. A Tegaderm was placed. The patient tolerated the procedure well without issue. From a pulmonary standpoint, the patient can be dismissed from the hospital once his pain control is adequate if his other medical issues are appropriate. Pulmonary will sign off at this point time. Feel free to contact us if we can be of additional assistance Coding CPT Codes Pulmonary/Thoracic - Pulmonary and Thoracic: 35526 Remove lung catheter ([id number]) [facility] [place] Procedure Codes (Charges) Pulmonary/Thoracic Procedure 1: Pulmonary and Thoracic: 37014 Remove lung catheter
[2022-02-01] MEDS: LIDOCAINE 5% 1 PATCH TD SCH (19:51)
[2022-02-01] MEDS ORDERED: MELATONIN 3 MG TAB PO ONE (20:55)
[2022-02-01] MEDS: MELATONIN 3 MG TAB PO SCH (21:00)
[2022-02-02] MEDS: ACETAMINOPHEN 325 MG TAB PO SCH ×3 (06:24→21:30)
--- NOTE | 2022-02-02 08:19 | XRay Report ---
XR chest 1V portable HISTORY: Chest tube removal. Follow-up. COMPARISON: Chest 02/01/2022 FINDINGS: Interval removal left-sided chest tube. Questionable tiny left apical pneumothorax. There a re multiple left-sided rib fractures again noted. Small left pleural effusion and left basilar densit ies persist. The right lung is clear. The heart is normal in size. No evidence for pulmonary edema. IMPRESSION: Interval removal of a left-sided chest tube with a probable tiny left hydropneumothorax remaining. ACT 112: Negative or not required by law. Electronically signed by: Eladio Conroy M.D. 02/02/2022 8:18 AM
[2022-02-02] MEDS: FINASTERIDE 5 MG TAB PO SCH (08:42)
[2022-02-02] MEDS: HEPARIN SOD 5,000 UNIT/0.5 ML VIAL SQ SCH ×2 (08:43→21:31)
[2022-02-02] MEDS: PANTOprazole 40 MG TAB PO SCH (08:44)
--- NOTE | 2022-02-02 10:32 | Hospitalist Progress Note ---
Date of Service February 02, 2022 Assessment & Plan (1) Fall: Plan: Fall appears mechanical; only injuries rib fractures with resultant hydropneumothoraxpain control, incentive spirometry (2) Traumatic fracture of ribs of left side with pneumothorax: Plan: chest tube removed; residual very tiny pneumothorax, pulmonary follow-up in the office, they signed off inpatient (3) Delirium: Plan: Currently resolved; observe (4) Prostate nodule with urinary obstruction: Plan: Follows with urology Continue with Finasteride (5) Esophageal reflux: Plan: Continue omeprazole 20mg daily (6) Winged scapula of left side: Plan: Follows with Dr. Edwards noting some thoracic nerve pain with this as well as muscle tightening OT/PT to maintain mobility (7) BPH with obstruction/lower urinary tract symptoms: Plan: As above Plan: Disposition pendinguncertain if 24-hour home support is available; also, observe today for recurrence of delirium preventative subcut Heparin Admission and Anticipated Discharge Date Admission Date: January 30, 2022 Subjective Follow-up of fall and left pneumothorax, acute delirium 2 days ago, improved; no complaints voice, awake and very appropriate Physical Exam Physical Exam: Constitutional and general: No acute distress, looks biologic age; sedate Head and face: No puffiness, atraumatic Eyes: No scleral icterus, extraocular movements normal Neck: Supple, no JVD Musculoskeletal: No acute joint swelling, no bony abnormalities Skin/dermatologic/integument: No rash, no purpura Hematologic and lymphatic: pallor +, no petechia Gastrointestinal/abdomen: Nondistended, soft, nonacute Neurologic: Cranial nerves intact, nonfocal Cardiovascular: Heart rhythm regular Respiratory: Chest movements equal, no use of accessory muscles, no adventitious sounds; decreased breath sounds left side Extremities: No edema, no cyanosis Psychiatryno active delirium Results & Data Results & Data ([facility]) Vital Signs (Past 12 Hours) Vital Signs Temp Pulse Pulse Resp BP Pulse Ox 02/02/22 07:37 36.5 C 77 19 159/77 H 97 02/02/22 03:57 36.7 C 75 16 167/74 H 97 02/02/22 00:00 67 02/01/22 23:44 36.4 C L 77 20 124/68 96 Diagnostic Findings Chest X-Ray 02/01/22 11:55 XR chest 1V portable at 12:08 PM CLINICAL HISTORY: Follow-up left apical pneumothorax. Chest tube.. COMPARISON STUDY: 02/01/2022 at 6:32 AM TECHNIQUE: 1 view of the chest FINDINGS: Single frontal view of the chest demonstrates the cardiomediastinal silhouette to be within normal limits. Left-sided chest tube is again seen. Compared to the earlier study, previously identified left apical pneumothorax is not identified. The lungs are clear of alveolar opacities. There is again evidence for small left pleural effusion and minimal residual left basilar atelectasis. There is no right pleural effusion. There is no evidence for vascular congestion. There is no acute osseous pathology. IMPRESSION: 1. Compared to the earlier study, there is minimal apical pneumothorax on the left is not seen. 2. Small left pleural effusion and left basilar atelectasis are again noted. ACT 112: Negative or not required by law. Electronically signed by: Bijan Garcia M.D. 02/01/2022 12:25 PM Chest X-Ray 02/02/22 08:30 XR chest 1V portable HISTORY: Chest tube removal. Follow-up. COMPARISON: Chest 02/01/2022 FINDINGS: Interval removal left-sided chest tube. Questionable tiny left apical pneumothorax. There are multiple left-sided rib fractures again noted. Small left pleural effusion and left basilar densities persist. The right lung is clear. The heart is normal in size. No evidence for pulmonary edema. IMPRESSION: Interval removal of a left-sided chest tube with a probable tiny left hydropneumothorax remaining. ACT 112: Negative or not required by law. Electronically signed by: Eladio Conroy M.D. 02/02/2022 8:18 AM PG Care Time/CCT Total # of Minutes Spent Total Time Spent with Patient: Total time spent is greater than 50% in coordination of care (as documented) at patient's floor/unit and/or counseling patient: Coding Level of Care Code 06749 Subseq Hosp Care Lvl 2 Diagnoses Fall W19.XXXA Traumatic fracture of ribs of left side with pneumothorax S22.42XA; S27.0XXA Delirium R41.0 Prostate nodule with urinary obstruction N40.3; N13.8 Esophageal reflux K21.9 Winged scapula of left side M95.8 BPH with obstruction/lower urinary tract symptoms N40.1; N13.8
[2022-02-02] MEDS: MELATONIN 3 MG TAB PO SCH (21:30)
[2022-02-02] MEDS: LIDOCAINE 5% 1 PATCH TD SCH (21:34)
[2022-02-03] MEDS: ACETAMINOPHEN 325 MG TAB PO SCH ×3 (05:35→21:15)
[2022-02-03] MEDS: HALOPERIDOL LACTATE 5 MG/ML 1 ML VIAL IV PRN ×2 (07:08→23:07)
--- NOTE | 2022-02-03 07:33 | Hospitalist Progress Note ---
Date of Service February 03, 2022 Assessment & Plan (1) Fall: Plan: Fall appears mechanical; only injuries rib fractures with resultant hydropneumothoraxpain control, incentive spirometry (2) Traumatic fracture of ribs of left side with pneumothorax: Plan: Repeat x-ray chest essential resolved pneumo (3) Delirium: Plan: Recurrent; probably hospital-acquired; not had narcotics since 3-10-all stopped (note daughter desires no narcotics) While it is very possible he might do better at home given fall unfortunately do not feel safe for discharge; scheduled low-dose risperidone p.m.; noted mild leukocytosis; UArule out treatable causes; procalcitonin ordered and noted normal; emphasized to nursing nonpharmacologic measures; psychiatry following; Scheduled Tylenol and as needed ibuprofen for pain (4) Prostate nodule with urinary obstruction: Plan: Follows with urology Continue with Finasteride (5) Esophageal reflux: Plan: Continue omeprazole 20mg daily (6) Winged scapula of left side: Plan: Follows with Dr. Edwards noting some thoracic nerve pain with this as well as muscle tightening OT/PT to maintain mobility (7) BPH with obstruction/lower urinary tract symptoms: Plan: As above Plan: Disposition pendingdaughter desires home with with her; she was very keen on taking him today but explained that it is very difficult to discharge with active deliriumnote presentation with fall resulting in pneumothorax and active delirium presents a significant risk of falling again; she understands; explained work-up for treatable causes such as UTI; she is going to call tomorrow at 9:30 AM with her goal being discharge; noted minor lab abnormalitiesBUN, CO2, glucose, hemoglobincan be followed (IV fluid/some such intervention intentionally not implemented) Admission and Anticipated Discharge Date Admission Date: January 30, 2022 Subjective Follow-up of fall and left pneumothorax, again deliriousseveral staff members in the room Physical Exam Physical Exam: Constitutional and general: No acute distress, looks biologic age; sedate Head and face: No puffiness, atraumatic Eyes: No scleral icterus, extraocular movements normal Neck: Supple, no JVD Musculoskeletal: No acute joint swelling, no bony abnormalities Skin/dermatologic/integument: No rash, no purpura Hematologic and lymphatic: pallor +, no petechia Gastrointestinal/abdomen: Nondistended, soft, nonacute Neurologic: Cranial nerves intact, nonfocal Cardiovascular: Heart rhythm regular Respiratory: Chest movements equal, no use of accessory muscles, no adventitious sounds; decreased breath sounds left side Extremities: No edema, no cyanosis Psychiatrycalm when I saw him (just got Haldol); active delirium when I saw him second time Results & Data Results & Data ([facility]) Vital Signs (Past 12 Hours) Vital Signs Temp Pulse Pulse Resp BP Pulse Ox 02/03/22 00:45 79 02/02/22 23:57 36.6 C 90 18 154/74 H 97 02/02/22 20:00 36.8 C 83 18 175/70 H 97 Laboratory Results Laboratory Results - last 24 hr 02/03/22 02/03/22 02/03/22 08:34 08:34 08:37 WBC 11.17 H RBC 4.22 L Hgb 12.9 L Hct 38.0 L MCV 90.0 MCH 30.6 MCHC 33.9 RDW Std Deviation 43.1 RDW Coeff of Aysha 13.1 Plt Count 259 MPV 10.1 Immature Gran % (Auto) 0.2 Neut % (Auto) 80.5 Lymph % (Auto) 8.9 [place] % (Auto) 9.7 Eos % (Auto) 0.3 Baso % (Auto) 0.4 Neut # (Auto) 9.01 H Lymph # (Auto) 0.99 L [place] # (Auto) 1.08 H Eos # (Auto) 0.03 Baso # (Auto) 0.04 Immature Gran # (Auto) 0.02 Sodium 135 L Potassium 3.8 Chloride 104 Carbon Dioxide 20 L Anion Gap 11 BUN 30 H Creatinine 1.09 Est Cr Clr Drug Dosing 36.9 Est GFR ( Amer) 70.9 Est GFR (Non-Af Amer) 61.1 BUN/Creatinine Ratio 27.5 H Glucose 162 H Calcium 8.5 Total Bilirubin 0.9 AST 31 ALT 25 Alkaline Phosphatase 50 Total Protein 6.5 Albumin 3.9 Globulin 2.6 Albumin/Globulin Ratio 1.5 Procalcitonin 0.12 Diagnostic Findings Chest X-Ray 02/03/22 09:04 XR chest 1V portable HISTORY: Left-sided chest tube removal. Assess for pneumothorax. COMPARISON: Chest 02/02/2022. FINDINGS: Multiple left-sided rib fractures and a small left pleural effusion remain unchanged. The right lung is clear. The heart is normal in size. The left pneumothorax appears to have essentially resolved in the interval. IMPRESSION: 1. The left pneumothorax has essentially resolved in the interval. 2. Left-sided rib fractures and a small left pleural effusion persists. ACT 112: Negative or not required by law. Electronically signed by: Eladio Conroy M.D. 02/03/2022 9:26 AM PG Care Time/CCT Total # of Minutes Spent Total Time Spent with Patient: Total time spent is greater than 50% in coordination of care (as documented) at patient's floor/unit and/or counseling patient: Coding Level of Care Code 04980 Subseq Hosp Care Lvl 2 Diagnoses Fall W19.XXXA Traumatic fracture of ribs of left side with pneumothorax S22.42XA; S27.0XXA Delirium R41.0 Prostate nodule with urinary obstruction N40.3; N13.8 Esophageal reflux K21.9 Winged scapula of left side M95.8 BPH with obstruction/lower urinary tract symptoms N40.1; N13.8
[2022-02-03] MEDS: HEPARIN SOD 5,000 UNIT/0.5 ML VIAL SQ SCH ×2 (08:01→21:13)
[2022-02-03] MEDS: PANTOprazole 40 MG TAB PO SCH (08:01)
[2022-02-03] MEDS: FINASTERIDE 5 MG TAB PO SCH (08:02)
[2022-02-03] MEDS ORDERED: OLANZapine ZYDIS 5 MG ORALLY DIS. TAB PO ONE (08:14)
[2022-02-03 09:01] LABS: Basophils # (auto) 0.04 K/uL (0-0.2); Basophils % (auto) 0.4 %; Eosinophils # (auto) 0.03 K/uL (0-0.5); Eosinophils % (auto) 0.3 %; Hemoglobin 12.9 g/dL (14.0-18.0); Immature Granulocytes # (auto) 0.02 K/uL (0.00-0.02); Immature Granulocytes % (auto) 0.2 %; Lymphocytes # (auto) 0.99 K/uL (1.2-3.4); Lymphocytes % (auto) 8.9 %; Mean Corpuscular Hemoglobin 30.6 pg (25-34); Mean Corpuscular Hgb Conc 33.9 g/dL (32-36); Mean Platelet Volume 10.1 fL (7.4-10.4); Monocytes # (auto) 1.08 K/uL (0.11-0.59); Monocytes % (auto) 9.7 %; Neutrophils # (auto) 9.01 K/uL (1.4-6.5); Neutrophils % (auto) 80.5 %; Platelet Count 259 K/uL (130-400); RDW Coefficient of Variation 13.1 % (11.5-14.5); RDW Standard Deviation 43.1 fL (36.4-46.3); Red Blood Count 4.22 M/uL (4.7-6.1); White Blood Count 11.17 K/uL (4.8-10.8)
[2022-02-03 09:24] LABS: Albumin Globulin Ratio 1.5 (0.9-2); Albumin Level 3.9 gm/dl (3.4-5.0); BUN Creatinine Ratio 27.5 (10-20); Bilirubin,Total 0.9 mg/dl (0.2-1.0); Calcium 8.5 mg/dl (8.5-10.1); Creatinine Clr Calc Pharmacy 36.9 ml/min; Est GFR (African American) 70.9 ml/min; Est GFR (Non-African American) 61.1 ml/min; Globulin 2.6 gm/dl (2.5-4.0); Potassium 3.8 mmol/L (3.5-5.1); Total Protein 6.5 gm/dl (6.0-8.3)
--- NOTE | 2022-02-03 09:27 | XRay Report ---
XR chest 1V portable HISTORY: Left-sided chest tube removal. Assess for pneumothorax. COMPARISON: Chest 02/02/2022. FINDINGS: Multiple left-sided rib fractures and a small left pleural effusion remain unchanged. The r ight lung is clear. The heart is normal in size. The left pneumothorax appears to have essentially re solved in the interval. IMPRESSION: 1. The left pneumothorax has essentially resolved in the interval. 2. Left-sided rib fractures and a small left pleural effusion persists. ACT 112: Negative or not required by law. Electronically signed by: Eladio Conroy M.D. 02/03/2022 9:26 AM
[2022-02-03] MEDS ORDERED: IBUPROFEN 200 MG TAB PO PRN (10:28)
--- NOTE | 2022-02-03 14:28 | Psychiatric Progress Note ---
Date of Service February 03, 2022 Impression / Recommendations Impression Diagnostically consistent with encephalopathy/hyperactive delirium. Agree with Dr. Palafox that combination of his age, hospital admission and need for opioids likely caused the delirium. 02/03/22: difficult night, can't exclude hospital acquired delirium superimposed on above Plan: no additional recs at this time as prns appear effective and calm and cooperative this am. Interval History Identifying Information 86 yo man with history of BPH, GERD, admitted for fall with rib fracture and pneumothorax. Psychiatry consulted for delirium management recommendations. Chief Complaint "I follow politics and the weather is going to be warmer this week". Review of Systems Notes patient denies N/V/VALENTINE/mood sx Subjective Subjective Patient was seen & assessed and interval progress reviewed with nursing. He received Haldol IV and Zyprexa 2.5 mg earlier this am for increased restlessness/confusion/calling out over night. He was sitting in chart and conversing well with 1-on-1 aid. He denied any upset mood and has no memory of issues overnight. Appears to be ordered Risperdal 0.25 mg for this hs by hospitalist. Physical Exam Psychiatric Orientation: alert, oriented to person, oriented to place and oriented to time (general) Apperance: appropriately groomed Eye Contact: good eye contact Motor Behavior: no abnormal motor movements Speech: normal rate/rhythm/volume of speech Affect: euthymic affect Mood: no depressed mood Thought Process: + concrete thought process Thought Content: reality based without delusions Suicidal Thoughts: denies suicidal thoughts Hallucinations: no auditory hallucinations and no visual hallucinations Cognition: attention grossly intact and language grossly intact Vital Signs (Past 24 Hours) Last Vital Signs Temp 36.8 C 02/03/22 12:59 Pulse 77 02/03/22 12:59 Resp 18 02/03/22 12:59 BP 148/79 H 02/03/22 12:59 Pulse Ox 95 02/03/22 12:59 Results & Data ([facility]) Laboratory Results Laboratory Results - last 24 hr 02/03/22 02/03/22 02/03/22 08:34 08:34 08:37 WBC 11.17 H RBC 4.22 L Hgb 12.9 L Hct 38.0 L MCV 90.0 MCH 30.6 MCHC 33.9 RDW Std Deviation 43.1 RDW Coeff of Aysha 13.1 Plt Count 259 MPV 10.1 Immature Gran % (Auto) 0.2 Neut % (Auto) 80.5 Lymph % (Auto) 8.9 Lake % (Auto) 9.7 Eos % (Auto) 0.3 Baso % (Auto) 0.4 Neut # (Auto) 9.01 H Lymph # (Auto) 0.99 L Lake # (Auto) 1.08 H Eos # (Auto) 0.03 Baso # (Auto) 0.04 Immature Gran # (Auto) 0.02 Sodium 135 L Potassium 3.8 Chloride 104 Carbon Dioxide 20 L Anion Gap 11 BUN 30 H Creatinine 1.09 Est Cr Clr Drug Dosing 36.9 Est GFR ( Amer) 70.9 Est GFR (Non-Af Amer) 61.1 BUN/Creatinine Ratio 27.5 H Glucose 162 H Calcium 8.5 Total Bilirubin 0.9 AST 31 ALT 25 Alkaline Phosphatase 50 Total Protein 6.5 Albumin 3.9 Globulin 2.6 Albumin/Globulin Ratio 1.5 Procalcitonin 0.12 Current Inpatient Medications Current Inpatient Medications: Current Inpatient Medications Acetaminophen (Acetaminophen 325 Mg Tab) 975 mg PO Q8 MICHELINE Stop: 03/05/22 13:59 Last Admin: 02/03/22 14:05 Dose: 975 mg Documented by: Finasteride (Finasteride 5 Mg Tab) 5 mg PO DAILY MICHELINE Stop: 03/02/22 08:59 Last Admin: 02/03/22 08:02 Dose: 5 mg Documented by: Haloperidol Lactate (Haloperidol Lactate 5 Mg/Ml 1 Ml Vial) 3 mg IV Q6 PRN PRN Reason: Agitation Stop: 03/02/22 13:48 Last Admin: 02/03/22 07:08 Dose: 3 mg Documented by: Heparin Sodium (Porcine) (Heparin Sod 5,000 Unit/0.5 Ml Vial) 5,000 units SQ Q12 MICHELINE Stop: 03/02/22 20:59 Last Admin: 02/03/22 08:01 Dose: 5,000 units Documented by: Ibuprofen (Ibuprofen 200 Mg Tab) 400 mg PO QID PRN PRN Reason: Pain Stop: 03/05/22 10:27 Lidocaine (Lidocaine 5% 1 Patch) 1 patch TD HS MICHELINE Stop: 03/02/22 20:59 Last Admin: 02/02/22 21:34 Dose: 1 patch Documented by: Melatonin (Melatonin 3 Mg Tab) 3 mg PO HSZ MICHELINE Stop: 03/03/22 21:59 Last Admin: 02/02/22 21:30 Dose: 3 mg Documented by: Miscellaneous (Remove Lidoderm Patch) 1 ea N/A DAILY MICHELINE Stop: 03/02/22 09:59 Last Admin: 02/03/22 08:01 Dose: 1 ea Documented by: Olanzapine (Olanzapine 10 Mg/2.1 Ml Sdv) 7.5 mg IM Q8 PRN PRN Reason: Agitation Stop: 03/02/22 13:59 Pantoprazole Sodium (Pantoprazole 40 Mg Tab) 40 mg PO DAILY MICHELINE Stop: 03/02/22 08:59 Last Admin: 02/03/22 08:01 Dose: 40 mg Documented by: Risperidone (Risperidone 0.5 Mg Tablet) 0.25 mg PO HS MICHELINE Stop: 03/05/22 20:59
[2022-02-03] MEDS: MELATONIN 3 MG TAB PO SCH (19:49)
[2022-02-03] MEDS ORDERED: risperiDONE 0.5 MG TABLET PO SCH (21:00)
[2022-02-03] MEDS: LIDOCAINE 5% 1 PATCH TD SCH (21:14)
[2022-02-03 23:52] LABS: Appearance Urine Clear (Clear); Bilirubin Urine Negative (Negative); Blood Urine Negative (Negative); Color Urine Yellow; Glucose Urine UA Negative (Negative); Ketones Urine Negative (Negative); Leukocyte Esterase Urine Negative (Negative); Nitrite Urine Negative (Negative); Protein Urine Negative (Negative); Specific Gravity Urine 1.021 (1.000-1.030); Urobilinogen Urine Negative (Negative); pH Urine 5.5 (4.5-7.5)
[2022-02-04 00:32] LABS: Bacteria Urine Automated Negative (Negative); Epithelial Cell Urine Auto >30 /lpf (0-5); RBC Urine Automated 0-4 /hpf (0-4)
[2022-02-04] MEDS: ACETAMINOPHEN 325 MG TAB PO SCH ×3 (05:36→22:29)
[2022-02-04 06:20] LABS: Basophils # (auto) 0.04 K/uL (0-0.2); Basophils % (auto) 0.5 %; Eosinophils # (auto) 0.19 K/uL (0-0.5); Eosinophils % (auto) 2.4 %; Hematocrit (blood only) 34.2 % (42-52); Hemoglobin 11.5 g/dL (14.0-18.0); Immature Granulocytes # (auto) 0.02 K/uL (0.00-0.02); Immature Granulocytes % (auto) 0.2 %; Lymphocytes # (auto) 1.01 K/uL (1.2-3.4); Lymphocytes % (auto) 12.5 %; Mean Corpuscular Hemoglobin 30.3 pg (25-34); Mean Corpuscular Hgb Conc 33.6 g/dL (32-36); Mean Platelet Volume 9.4 fL (7.4-10.4); Monocytes # (auto) 0.96 K/uL (0.11-0.59); Monocytes % (auto) 11.9 %; Neutrophils # (auto) 5.83 K/uL (1.4-6.5); Neutrophils % (auto) 72.5 %; Platelet Count 238 K/uL (130-400); RDW Coefficient of Variation 13.2 % (11.5-14.5); White Blood Count 8.05 K/uL (4.8-10.8)
[2022-02-04 06:39] LABS: Albumin Globulin Ratio 1.4 (0.9-2); Albumin Level 3.6 gm/dl (3.4-5.0); BUN Creatinine Ratio 27.8 (10-20); Bilirubin,Total 1.3 mg/dl (0.2-1.0); Calcium 9.1 mg/dl (8.5-10.1); Est GFR (African American) 94.2 ml/min; Est GFR (Non-African American) 81.3 ml/min; Globulin 2.6 gm/dl (2.5-4.0); Total Protein 6.2 gm/dl (6.0-8.3)
--- NOTE | 2022-02-04 07:59 | Hospitalist Progress Note ---
Date of Service February 04, 2022 Assessment & Plan (1) Fall: Plan: Fall appears mechanical; only injuries rib fractures with resultant hydropneumothoraxnow resolved on CXR pain control may have caused some toxic encephalopathy however the patient continues to have decline in his cognitive awareness may be due to sleep deprivation Psychiatry has visited with the patient and is prescribed some at bedtime Zyprexa plus melatonin Continue to avoid opiates, reorient frequently, and have a one-on-one to prevent injury (2) Traumatic fracture of ribs of left side with pneumothorax: Plan: Repeat x-ray chest essential resolved pneumo (3) Delirium: Plan: Recurrent; probably hospital-acquired; not had narcotics since 01-31-all stopped (note daughter desires no narcotics) While it is very possible he might do better at home Physical therapy assessment reinforces that it is not safe for discharge patient can only walk 20 feet with a rolling walker contact-guard. scheduled low-dose risperidone p.m.; Urinalysis is not suggestive of urinary infection at this time psychiatry following and agree with prn meds for behavior control Scheduled Tylenol and as needed ibuprofen for pain (4) Prostate nodule with urinary obstruction: Plan: Follows with urology Continue with Finasteride (5) Esophageal reflux: Plan: Continue omeprazole 20mg daily (6) Winged scapula of left side: Plan: Follows with Dr. Edwards noting some thoracic nerve pain with this as well as muscle tightening OT/PT to maintain mobility (7) BPH with obstruction/lower urinary tract symptoms: Plan: As above Plan: Disposition pendingdaughter desires home with with her; she was very keen on taking him today but explained that it is very difficult to discharge with active deliriumnote presentation with fall resulting in pneumothorax and active delirium presents a significant risk of falling again; she understands; explained work-up for treatable causes such as UTI; Daughter is present at bedside but wants her father to sleep while she is here and cannot assess his status at this time Admission and Anticipated Discharge Date Admission Date: January 30, 2022 Subjective Patient is pleasantly confused although I feel he is somewhat sedated from his nocturnal medications. Family is visiting at the bedside they strongly wanted to come home although his physical therapy performance status is poor. I did relay my concerns to the family that he can fall and injure himself and that would create increased mortality over next year however wish to assess him at the bedside Review of Systems Review of Systems: Unobtainable due to cognitive status Patient however is able to follow some commands denies any discomfort at this time specifically no chest discomfort from his rib fractures Physical Exam Physical Exam: The patient appeared well nourished and normally developed. He is somewhat confused and appears his stated age Vital signs as documented. Head exam is normocephalic atraumatic Neck is without JVD, thyromegaly, or carotid bruits. Lungs are clear to auscultation, decreased at the bases, no focal loss of breath sounds Cardiac exam, Rhythm is regular.. no murmurs are heard Abdominal exam reveals normal bowel sounds, soft non tender, no masses Extremities are nonedematous and both pedal pulses are present Neurologic exam is alert and oriented x1 no focal loss of strength or sensation Skin is without bruises or rashes Psychologically is with concerns for worsening memory loss Results & Data Results & Data ([facility]) Vital Signs (Past 12 Hours) Vital Signs Temp Pulse Pulse Resp BP Pulse Ox 02/04/22 07:10 98.2 F 104 H 15 165/79 H 96 02/04/22 04:33 98.1 F 103 H 16 157/78 H 97 02/03/22 23:52 98 H PG Care Time/CCT Total # of Minutes Spent Total Time Spent with Patient: Total time spent is greater than 50% in coordination of care (as documented) at patient's floor/unit and/or counseling patient: Coding Level of Care Code 15184 Subseq Hosp Care Lvl 3 Diagnoses Fall W19.XXXA Traumatic fracture of ribs of left side with pneumothorax S22.42XA; S27.0XXA Delirium R41.0 Prostate nodule with urinary obstruction N40.3; N13.8 Esophageal reflux K21.9 Winged scapula of left side M95.8 BPH with obstruction/lower urinary tract symptoms N40.1; N13.8
[2022-02-04] MEDS: FINASTERIDE 5 MG TAB PO SCH (08:09)
[2022-02-04] MEDS: PANTOprazole 40 MG TAB PO SCH (08:09)
[2022-02-04] MEDS: HEPARIN SOD 5,000 UNIT/0.5 ML VIAL SQ SCH ×2 (08:09→21:06)
[2022-02-04] MEDS ORDERED: diphenhydrAMINE HCL 25 MG/10 ML UDC PO ONE (21:00)
[2022-02-04] MEDS: LIDOCAINE 5% 1 PATCH TD SCH (21:06)
[2022-02-04] MEDS: MELATONIN 3 MG TAB PO SCH (22:30)
[2022-02-05] MEDS: ACETAMINOPHEN 325 MG TAB PO SCH ×2 (05:40→14:22)
[2022-02-05 07:16] LABS: Basophils # (auto) 0.05 K/uL (0-0.2); Basophils % (auto) 0.8 %; Eosinophils # (auto) 0.32 K/uL (0-0.5); Eosinophils % (auto) 4.9 %; Hematocrit (blood only) 34.6 % (42-52); Hemoglobin 11.9 g/dL (14.0-18.0); Immature Granulocytes # (auto) 0.03 K/uL (0.00-0.02); Immature Granulocytes % (auto) 0.5 %; Lymphocytes % (auto) 21.3 %; Mean Corpuscular Hemoglobin 31.2 pg (25-34); Mean Corpuscular Hgb Conc 34.4 g/dL (32-36); Mean Corpuscular Volume 90.6 fL (80-100); Mean Platelet Volume 9.3 fL (7.4-10.4); Monocytes # (auto) 0.86 K/uL (0.11-0.59); Monocytes % (auto) 13.1 %; Neutrophils # (auto) 3.91 K/uL (1.4-6.5); Neutrophils % (auto) 59.4 %; Platelet Count 245 K/uL (130-400); RDW Coefficient of Variation 13.3 % (11.5-14.5); Red Blood Count 3.82 M/uL (4.7-6.1); White Blood Count 6.57 K/uL (4.8-10.8)
[2022-02-05] MEDS: FINASTERIDE 5 MG TAB PO SCH (08:22)
[2022-02-05] MEDS: HEPARIN SOD 5,000 UNIT/0.5 ML VIAL SQ SCH (08:22)
[2022-02-05] MEDS: PANTOprazole 40 MG TAB PO SCH (08:23)
--- NOTE | 2022-02-05 16:32 | Discharge Summary ---
Date of Service February 05, 2022 Admission HPI Per Admitting Provider 86 YOM with past medical history of: BPH with prostate nodule, Zenker, diverticulum, osteopenia, GERD. Patient comes to the [facility] today following falling on black top driveway. Patient states he went out to shovel snow and slipped in his driveway landing directly on his upper thoracic back and more on left side. The patient immediately had the wind knocked out of him and was unable to take deep breath- he got up into the garage and continued to not be able to catch his breath. He was brought by his daughter to the [facility]. In the EMD he had routine labs drawn, CXR, and CT scan of his chest performed. This was notable for left sided pneumothorax with effusion and reported 6 rib fractures to the left side. Hospitalist and Cooker Chip were notified of admission. Patient evaluated. Patient denies hitting head or having any neck pain with palpation, he is noted to have point tenderness on his thoracic spine and upper lumbar, will obtain CT cans. He has SubQ air on the left side as well. Has good air entry on right throughout and into the left side except at the top of his lung as this is decreased. No further pain noted in his pelvis, knees, or shoulders/arms. He is awake and no bruising noted. Patient will be admitted to PCU to closely follow his pain control as well as imaging. We discussed importance of pain control in regards to deep breathing and preventing sequela of pneumonia/atelectasis. Will provide multiple tiered pain control, splinting with blanket, and APS consult for possible assistance with pain control. Principal Diagnosis fall with rib fracture pneumothorax resolved encephalopathy, toxic, resolved Discharge Exam The patient appeared well Vital signs as documented. Lungs are clear to auscultation and appear unlabored Cardiac exam, Rhythm is regular.. No murmurs, rubs or gallops. Abdominal exam reveals normal bowel sounds, soft non tender, no masses Extremities are nonedematous and both pedal pulses are normal. Neurologic exam is alert and oriented, no focal loss of strength or sensation Skin is without bruises or rashes Psychologically is without concerns for anxiety or depression. Discharge Data Allergies Allergy/AdvReac Type Severity Reaction Status Date / Time No Known Allergies Allergy Unknown Verified 07/12/21 09:55 Consultations 01/30/22 14:02 ED Decision to Admit Stat 01/30/22 16:29 Consult Pain Management Routine Consult Pulmonology Routine 01/31/22 14:37 Consult Psychiatry Routine Ordered Studies 01/30/22 12:58 CT chest diagnostic wo con Stat 01/30/22 14:20 CT lumbar spine wo con Stat CT thoracic spine wo con Stat Hospital Course (1) Fall: Fall appears mechanical; only injuries rib fractures with resultant hydropneumothoraxnow resolved on CXR pain control may have caused some toxic encephalopathy however the patient continues to have decline in his cognitive awareness may be due to sleep deprivation Psychiatry has visited with the patient recommended Zyprexa at bedtime however patient appeared drug to me during the day Zyprexa was stopped melatonin continued and he had excellent improvement back to his normal baseline and was eventually discharged home Continue to avoid opiates in the future (2) Traumatic fracture of ribs of left side with pneumothorax: Repeat x-ray chest essential resolved pneumo (3) Delirium: Recurrent; probably hospital-acquired; plus toxic encephalopathy due to opiates. Not had narcotics since 01-31-all stopped (note daughter desires no narcotics) Urinalysis is not suggestive of urinary infection at this time (4) Prostate nodule with urinary obstruction: Follows with urology Continue with Finasteride (5) Esophageal reflux: Continue omeprazole 20mg daily (6) Winged scapula of left side: Follows with Dr. Edwards noting some thoracic nerve pain with this as well as muscle tightening OT/PT to maintain mobility (7) BPH with obstruction/lower urinary tract symptoms: As above Total Time Total Time Spent Total Time Spent (In Minutes): It required greater than 30 minutes to prepare this patient for discharge Discharge Plan Discharge Items Patient Disposition: Home - Self-Care Reason For Visit: FALL WITH PNEUMOTHORAX Discharge Diagnosis: rib fractures with punctured lung Activity: Per Instructions section Activity Comment: cautiously increase activity, watch for falls Non-emergency contact: Primary Care Provider Call non-emergency contact if: your symptoms worsen and your pain is worsening Follow-up/Referrals: Cash Mejia [Primary Care Provider] - (Dr. Mejia is unavailable. Follow up appointment scheduled with Dr. Falcon.) Esequiel Falcon MD [Resident] - 02/13/22 1:10 pm (Dr. Mejia is unavailable. Please follow up with Dr. Falcon on Friday02/13/22 at 1:10 pm. Please arrive to the office at 12:55 pm for your appointment. If you are unable to keep this appointment, please call the office to reschedule at [phone].) Diet: Regular Addtl Attending Provider Instructions: your rib fractures will heal over time, please be cautious to avoid another fall slowly increase movement of your arms and shoulders as your chest pain improved and the ribs heal please be sure to see your family doctor in the first week after discharge Pending Studies at Discharge: No Stand-Alone Forms: My [facility], Smoking Cessation Medications and DC Order Prescriptions: Continued finasteride 5 mg tablet 5 mg PO DAILY Qty: 90 RF: 3 cyanocobalamin (vitamin B-12) 1,000 mcg capsule 1,000 mcg PO DAILY RF: 0 omeprazole 20 mg capsule,delayed release(DR/EC) 20 mg PO DAILY RF: 0 calcium carbonate [Calcium 600] 600 mg calcium (1,500 mg) tablet 600 mg PO DAILY RF: 0 acetaminophen [Tylenol] 325 mg Tablet 325 mg PO QID PRN (Reason: Pain) RF: 0 Discharge Orders: Discharge Order (Routine); Ordered 02/05/22 Ordered By: Moiz Kim Admission Data Admit Date/Time: 01/30/22 13:54 Attending Provider: Moiz Kim Admit Provider: Edward Lovell Primary Care Provider: Cash Mejia Other Providers: Edward Lovell ; Greg Chavez ; Raj Gonzalez ; Monet Chávez ; Lyly Holman ; Viri Gandhi ; Rajeev Garcia ; [facility] Other Interventions: Discharge Summary Assessment (RN) Last Done: 02/05/22 14:32 Coding Level of Care Code D/C DAY MANAGEMENT >30 MINS Diagnoses Fall W19.XXXA Traumatic fracture of ribs of left side with pneumothorax S22.42XA; S27.0XXA Delirium R41.0 Prostate nodule with urinary obstruction N40.3; N13.8 Esophageal reflux K21.9 Winged scapula of left side M95.8 BPH with obstruction/lower urinary tract symptoms N40.1; N13.8
== END 2022-02-05 15:19 | disposition home health service (06) | DRG 199 ==
LOC: ED 11:45 → 2S 13:54 → SUATTDRO 13:54 → 2S 15:55
DX: T40.2X5A Adverse effect of other opioids, initial encounter; Y92.014 Private driveway to single-family (private) house as the place of occurrence of the external cause; K21.9 Gastro-esophageal reflux disease without esophagitis; N40.2 Nodular prostate without lower urinary tract symptoms; S27.0XXA Traumatic pneumothorax, initial encounter; N40.1 Benign prostatic hyperplasia with lower urinary tract symptoms; G92.8 Other toxic encephalopathy; M54.14 Radiculopathy, thoracic region; W01.0XXA Fall on same level from slipping, tripping and stumbling without subsequent striking against object, initial encounter; Y92.239 Unspecified place in hospital as the place of occurrence of the external cause; S22.42XA Multiple fractures of ribs, left side, initial encounter for closed fracture